=== PATIENT | female | born 1995 | race African-American/Black ===

== ENCOUNTER 2021-05-26 15:16 | Emergency (ER) | payer OTHER, SELFPAY ==
[2021-05-26 15:25] VITALS: BP 126/82; PULSE 95; RESP 16; TEMP 36.4; O2SAT 100
--- NOTE | 2021-05-26 15:44 | ED.URI ---
HPI - URI/Sore Throat General Chief Complaint: Upper Respiratory Infection Stated Complaint: fever/jean/sore throat Time Seen by Provider: 05/26/21 16:00 Source: patient and RN notes reviewed Mode of arrival: ambulatory Limitations: no limitations History of Present Illness HPI Narrative: 26-year-old female presents with concern for fever, headache, sore throat since yesterday. She denies nasal congestion, rhinorrhea, cough, shortness of breath, body aches, chills, sweats. Denies nausea, vomiting, abdominal pain. Reports diarrhea. Reports she has been taking Tylenol and ibuprofen. Denies other intervention. Reports she has not been vaccinated for Covid. Reports both of her children have recently had sore throats. MD elicited complaint: sore throat Related Data Home Medications Medication Instructions Recorded Confirmed Adderall XR 20 mg BYMOUTH DAILY 05/26/21 05/26/21 Allergies Allergy/AdvReac Type Severity Reaction Status Date / Time amoxicillin Allergy Other Verified 05/26/21 15:35 Review of Systems Review of Systems: CONSTITUTIONAL: Denies malaise, chills, sweats. Reports fever. EYES: Denies visual changes, redness, or discharge. ENT: Denies rhinorrhea, congestion, sinus pain, otalgia. Reports sore throat. CARDIOVASCULAR: Denies chest pain, palpitations, or edema. RESPIRATORY: Denies cough or dyspnea. GASTROINTESTINAL: Denies abdominal pain, nausea, vomiting, bloody, or mucous stools. Diarrhea GENITOURINARY: Denies dysuria or hematuria. SKIN: Denies rash or itching. MUSCULOSKELETAL: Denies back pain, joint pain, or myalgia. NEUROLOGIC: Denies numbness, weakness. Reports headache. PSYCHIATRIC: Denies anxiety or depression. All systems reviewed & are unremarkable except as noted in HPI and below PMFSH Family History Family History (Updated 09/17/18 @ 16:18 by DOCTOR UNKNOWN) Mother Hypertension Social History Social History Smoking status: Never smoker Alcohol intake: never Comments At time of signature, agree with nursing past medical, surgical, social and family history. There is no relevant family history pertinent to the presenting complaint Exam Narrative: GENERAL: Well-appearing, well-nourished, and in no acute distress. HEAD: Normocephalic EYES: PERRLA, conjunctivae clear ENT: Nares clear. Mucous membranes moist. TM pearly carter with sharp light reflex bilaterally; no tragal tenderness. Oropharynx not erythematous without lesions. Tonsils not enlarged and without exudate, no drooling, no hoarseness, no trismus, uvula midline. NECK: Supple. No lymphadenopathy CHEST: Clear to auscultation, breath sounds equal. No wheezing, rhonchi, rales, or stridor. No respiratory distress, speaks in full sentences. HEART: Regular rate and rhythm. No murmur heard. SKIN: Warm, dry, no rash. NEURO: Alert and oriented x3. PSYCH: Normal mood and affect Course Course Emergency Course: Patient is aware of diagnosis, understands and agrees to treatment plan. Anticipatory guidance given. Patient agrees to follow-up as directed and is aware of reasons to seek care at the emergency department. Portions of this record may have been created with voice recognition software Vital Signs Vital signs: Vital Signs Temperature 97.5 F L 05/26/21 15:25 Pulse Rate 95 05/26/21 15:25 Respiratory Rate 16 05/26/21 15:25 Blood Pressure 126/82 05/26/21 15:25 Pulse Oximetry 100 05/26/21 15:25 Temperature 97.5 F L 05/26/21 15:25 Pulse Rate 95 05/26/21 15:25 Respiratory Rate 16 05/26/21 15:25 Blood Pressure 126/82 05/26/21 15:25 Pulse Oximetry 100 05/26/21 15:25 Reviewed. MDM - URI/Sore Throat MDM Narrative Medical decision making narrative: Differential diagnosis considered: [place] virus, strep pharyngitis, allergic rhinitis, upper respiratory tract infection, sinusitis, rhinosinusitis, nasopharyngitis. viral pharyngitis, otitis media, otitis externa, pneumonia, bronchitis, viral cough
[2021-05-27 17:06] LABS: SARS-CoV-2 RNA PCR Negative
== END 2021-05-26 16:18 | disposition home or self-care (01) ==
PROVIDERS: Emergency Provider Nurse Practitioner; PCP Family Medicine
DX: J02.9 Acute pharyngitis, unspecified (principal); Z20.822 Contact with and (suspected) exposure to COVID-19
CPT/HCPCS: 87081; 87880; 99213; C9803; G0463; U0003; U0005

== ENCOUNTER 2021-06-28 10:29 | Emergency (ER) | payer OTHER, SELFPAY ==
--- NOTE | ~2021-06-28 | US_ITS ---
EXAMINATION: US pelvic complete w TV EXAM DATE: 06/28/2021 11:50 INDICATION: Bleeding and pain. TECHNIQUE: Pelvic transabdominal and transvaginal sonogram was performed. There are multiple graysca le and Doppler images available for interpretation. Comparison is made to prior examination from 2018. FINDINGS: Uterus measures 8.1 x 3.4 x 4.4 cm, and is morphologically normal. Endometrial stripe lisa sures 9 mm, within normal limits. There is no free pelvic fluid. Right adnexa: The ovary measures 2.2 x 1.8 x 1.8 cm and is morphologically normal. Ovarian vascular f low confirmed. Left adnexa: The ovary measures 3.3 x 2.2 x 2.1 cm and is morphologically normal. Ovarian vascular fl ow confirmed. IMPRESSION: Unremarkable pelvic ultrasound exam. Reviewed, dictated and finalized at location B.
[2021-06-28 10:40] VITALS: BP 146/89; PULSE 89; RESP 16; TEMP 36.6; O2SAT 100
[2021-06-28 11:32] LABS: Alanine Aminotransferase 17 U/L (4-35); Albumin Level 4.2 g/dL (3.5-5.1); Alkaline Phosphatase 85 U/L (38-126); Anion Gap 9 mmol/L (8-16); Aspartate Amino Transferase 22 U/L (14-36); Basophils Percent Auto 0.1 % (0.2-1.2); Bilirubin,Total 0.4 mg/dL (0.2-1.3); Blood Urea Nitrogen 11 mg/dL (7-17); Calcium 9.1 mg/dL (8.4-10.2); Carbon Dioxide 26 mmol/L (22-30); Chloride 104 mmol/L (98-107); Eosinophils Absolute Auto 0.1 K/mm3 (0-0.3); Eosinophils Percent Auto 1.2 % (0-4.4); Estimated CRCL calculation 158 ml/min; Estimated Glomerular Filt Rate > 60; Glucose 92 mg/dL (65-110); Hematocrit 35.1 % (37.0-47.0); Hemoglobin 11.2 g/dL (12.0-15.0); Immature Granulocyte Absolute 0.02 K/mm3 (0.00-0.031); Immature Granulocyte Percent A 0.3 % (0-0.5); Lymphocytes Absolute Auto 2.24 K/mm3 (0.9-3.2); Lymphocytes Percent Auto 32.3 % (18.3-44.2); Mean Corpuscular HGB Conc 31.9 g/dl (32-36); Mean Corpuscular Hemoglobin 27.6 pg (26-34); Mean Corpuscular Volume 86.5 fl (80-100); Monocytes Absolute Auto 0.3 K/mm3 (0.1-0.6); Monocytes Percent Auto 4.3 % (2.6-8.5); Neutrophils Absolute Auto 4.3 K/mm3 (1.3-6.7); Neutrophils Percent Auto 61.8 % (45.5-73.1); Platelet Count Result 341 k/mm3 (150-375); Red Blood Count 4.06 M/mm3 (4.2-5.4); Sodium 139 mmol/L (137-145); White Blood Count 6.9 K/mm3 (4.5-10.0)
[2021-06-28 11:36] LABS: Add Urine Microscopic? YES; Appearance Urine Turbid (Clear); Bilirubin Urine Negative (Negative); Blood Urine 3+ (Negative); Color Urine Red (Yellow); Glucose Urine UA 1+ mg/dL (Negative); Ketones Urine Negative (Negative); Leukocyte Esterase Ur Trace LEU/UL (Negative); Nitrate Urine Negative (Negative); Protein Urine 3+ mg/dL (Negative); RBC Urine >75 /hpf (0-2); Specific Grav Ur 1.026 (1.001-1.035); Urobilinogen Urine Negative mg/dL (<2.0)
[2021-06-28 11:42] LABS: INR 0.9; Prothrombin Time 12.1 Seconds (11.1-14.7)
[2021-06-28 11:43] LABS: Partial Thromboplastin Time 26.8 SECONDS (22.3-36.8)
[2021-06-28 11:50] VITALS: BP 133/66; PULSE 80
[2021-06-28 11:53] VITALS: BP 141/69
[2021-06-28 11:54] VITALS: BP 133/83; PULSE 94
[2021-06-28 13:11] VITALS: BP 113/77; PULSE 80; RESP 14; O2SAT 99
[2021-06-28 14:34] VITALS: BP 112/87; PULSE 80; RESP 14; TEMP 36.9; O2SAT 100
--- NOTE | 2021-06-28 17:01 | ED.GENADULT ---
HPI - General Adult General Chief complaint: Vaginal Bleeding Stated complaint: vag bleeding Time Seen by Provider: 06/28/21 10:49 Source: patient Mode of arrival: ambulatory Limitations: no limitations History of Present Illness HPI narrative: Patient presents with chief complaint of intermittent vaginal bleeding that has been intermittent since taking her Nexplanon out in December. Patient states that she used the NuvaRing for 1 month but then discontinued using it. Patient reports that her [employer]INE[employer] Dr. Ramirez prescribed progesterone but she never took it. She reports the past few weeks she has had bleeding and fatigue. Reports it has been heavier the past few days and she has noticed clots when getting up. She reports that she has not felt like being very active since having all of the bleeding. She reports she called her ob office last week and they ordered blood work but she did not go and have it performed. She reports she presented to the ER today after calling her ob for the labwork and us. Related Data Home Medications Medication Instructions Recorded Confirmed Adderall XR 20 mg BYMOUTH DAILY 05/26/21 05/26/21 Allergies Allergy/AdvReac Type Severity Reaction Status Date / Time amoxicillin Allergy Other Verified 05/26/21 15:35 Review of Systems Review of Systems: CONSTITUTIONAL: Denies fever, chills, or sweats. EYES: Denies visual changes, redness, or discharge. ENT: Denies rhinorrhea, congestion, sore throat, or otalgia. CARDIOVASCULAR: Denies chest pain, palpitations, or edema. RESPIRATORY: Denies cough or dyspnea. GASTROINTESTINAL: Denies abdominal pain, nausea, vomiting, or diarrhea. GENITOURINARY: Reports vaginal bleeding denies dysuria or hematuria. SKIN: Denies rash or itching. MUSCULOSKELETAL: Denies back pain, joint pain, or myalgia. NEUROLOGIC: Denies headache, numbness, dizziness, or weakness. PSYCHIATRIC: Denies anxiety or depression. [facility] Family History Family History (Updated 09/17/18 @ 16:18 by DOCTOR UNKNOWN) Mother Hypertension Social History Social History Smoking status: Never smoker Alcohol intake: never Exam Narrative: GENERAL: Well-appearing, well-nourished, and in no acute distress. HEAD: Normocephalic, atraumatic. EYES: PERRLA and EOMI. CHEST: Clear to auscultation. No respiratory distress. No wheezes rales or rhonchi HEART: Regular rate and rhythm. No murmur heard. Normal peripheral pulses. ABDOMEN: Soft, mild tenderness over right ovary area, nondistended, normal active bowel sounds. PELVIC: Cervix appears normal. Moderate blood flow, no clots or profuse bleeding.No discharge noted. EXTREMITIES: Normal range of motion. No edema. SKIN: Warm, dry, no rash. NEURO: No focal deficits. Alert and oriented x3. PSYCH: Normal mood and affect. Course Vital Signs Vital signs: Vital Signs Temperature 98 F 06/28/21 10:40 Pulse Rate 89 06/28/21 10:40 Respiratory Rate 16 06/28/21 10:40 Blood Pressure 146/89 H 06/28/21 10:40 Pulse Oximetry 100 06/28/21 10:40 Temperature 98.4 F 06/28/21 14:34 Pulse Rate 80 06/28/21 14:34 Respiratory Rate 14 06/28/21 14:34 Blood Pressure 112/87 06/28/21 14:34 Pulse Oximetry 100 06/28/21 14:34 Medical Decision Making [facility] Narrative Medical decision making narrative: Consult Dr. Stanton [employer] patient the patient's complaints, presentation, lab work, ultrasound report who recommends to put the patient on Provera 20 mg daily for 1 week then 10 mg daily until she can be seen in the office. She asked that the patient be dispensed 40 pills. Patient has been given return ER instructions. Patient denies any other needs or concerns at this time and is ready for discharge. Vital Signs Vital Signs: Vital Signs Temperature 98 F 06/28/21 10:40 Pulse Rate 89 06/28/21 10:40 Respiratory Rate 16 06/28/21 10:40 Blood Pressure 146/89 H 06/28/21 10:40 Pulse Oximetry 100 06/28/21 10:40 Temperature 98.4 F
== END 2021-06-28 14:35 | disposition home or self-care (01) ==
PROVIDERS: Physician Assistant; Emergency Provider Emergency Medicine; PCP Family Medicine
DX: N93.8 Other specified abnormal uterine and vaginal bleeding (principal)
CPT/HCPCS: 36415; 76830; 76856; 80053; 81001; 81025; 85025; 85610; 85730; 99284

== ENCOUNTER 2021-08-05 15:07 | Outpatient (CLI) | payer OTHER, SELFPAY ==
[2021-08-05 16:06] LABS: Basophils Percent Auto 0.3 % (0.2-1.2); Eosinophils Absolute Auto 0.1 K/mm3 (0-0.3); Eosinophils Percent Auto 0.9 % (0-4.4); Hematocrit 33.5 % (37.0-47.0); Hemoglobin 10.7 g/dL (12.0-15.0); Immature Granulocyte Absolute 0.01 K/mm3 (0.00-0.031); Immature Granulocyte Percent A 0.1 % (0-0.5); Lymphocytes Absolute Auto 2.44 K/mm3 (0.9-3.2); Lymphocytes Percent Auto 31.6 % (18.3-44.2); Mean Corpuscular HGB Conc 31.9 g/dl (32-36); Mean Corpuscular Hemoglobin 26.9 pg (26-34); Mean Corpuscular Volume 84.2 fl (80-100); Mean Platelet Volume 11.1 fl (7.4-10.4); Monocytes Absolute Auto 0.4 K/mm3 (0.1-0.6); Monocytes Percent Auto 4.7 % (2.6-8.5); Neutrophils Absolute Auto 4.8 K/mm3 (1.3-6.7); Neutrophils Percent Auto 62.4 % (45.5-73.1); Platelet Count Result 421 k/mm3 (150-375); Red Blood Count 3.98 M/mm3 (4.2-5.4); Red Cell Distribution Width 14.9 % (11.5-14.5); White Blood Count 7.7 K/mm3 (4.5-10.0)
[2021-08-05 17:08] LABS: Iron 41 ug/dL (37-170)
[2021-08-05 17:17] LABS: Vitamin D 25 Hydroxy 37.9 ng/mL
[2021-08-05 17:18] LABS: Percent Iron Saturation 10 % (20-50)
[2021-08-05 17:22] LABS: Folic Acid 12.9 ng/mL (2.76->20)
[2021-08-05 17:44] LABS: Ferritin 7.78 ng/mL (6.24-137)
[2021-08-08 07:29] LABS: FSH 1.4 mIU/mL (***); LH 0.4 mIU/mL (***); Prolactin 7.3 ng/mL (***)
[2021-08-09 14:22] LABS: Testosterone Free 0.5 pg/mL (0.1-6.4); Testosterone Total 7 ng/dL (2-45)
[2021-08-10 14:16] LABS: DHEA-Sulfate 56 mcg/dL (18-391)
[2021-08-10 21:46] LABS: Estradiol, Ultrasensitive 9 pg/mL
== END 2021-08-05 15:08 | disposition home or self-care (01) ==
LOC: ANHLAB 15:09
PROVIDERS: PCP Family Medicine; Visit Provider Obstetrics & Gynecology
DX: N92.6 Irregular menstruation, unspecified (principal)
CPT/HCPCS: 36415; 82306; 82607; 82627; 82670; 82728; 82746; 83001; 83002; 83498; 83540; 83550; 84146; 84402; 84403; 85025

== ENCOUNTER 2021-10-09 18:18 | Emergency (ER) | payer OTHER, SELFPAY ==
[2021-10-09 18:26] VITALS: BP 151/85; PULSE 98; RESP 16; TEMP 37.4; O2SAT 100
--- NOTE | 2021-10-09 18:27 | ED.URI ---
HPI - URI/Sore Throat General Chief Complaint: Upper Respiratory Infection Stated Complaint: Congestion,Sore Throat Time Seen by Provider: 10/09/21 18:27 Source: patient, RN notes reviewed and old records reviewed Mode of arrival: ambulatory Limitations: no limitations History of Present Illness HPI Narrative: 26-year-old female presents to the [facility] with complaints of a sore throat and nasal congestion since yesterday. Has taken Tylenol but no other decongestant or medication. Denies Covid or flu vaccine. Denies chest pain or abdominal pain. Denies fevers. No nausea vomiting or diarrhea. States her ears feel full. MD elicited complaint: sore throat and nasal congestion Related Data Home Medications Medication Instructions Recorded Confirmed Adderall XR 20 mg BYMOUTH DAILY 05/26/21 08/03/21 cholecalciferol (vitamin D3) 10 10 mcg PO DAILY 08/03/21 08/03/21 mcg (400 unit) capsule Allergies Allergy/AdvReac Type Severity Reaction Status Date / Time amoxicillin Allergy Other Verified 10/09/21 18:22 Review of Systems Review of Systems: All systems reviewed & are unremarkable except as noted in HPI and below Constitutional: Constitutional: Reports no additional constitutional complaints, Denies chills, Denies fever(s) and Denies headache(s) Eyes: Eyes: Reports no additional eye complaints ENT: Reports as per HPI, Denies vertigo, Denies dizziness, Denies headache(s), Reports nasal congestion and Reports sore throat Cardiovascular: Cardiovascular: Reports no additional cardiovascular complaints, Denies chest pain, Denies syncope, Denies rapid heart rate and Denies dyspnea Respiratory: Respiratory: Reports no additional respiratory complaints, Denies cough, Denies dyspnea and Denies wheezing Gastrointestinal: Gastrointestinal: Reports no additional gastrointestinal complaints, Denies abdominal pain, Denies diarrhea, Denies nausea and Denies vomiting Musculoskeletal: Musculoskeletal: Reports no additional musculoskeletal complaints and Denies numbness Integumentary/Breasts: Skin/Breast: Reports system reviewed and no additional complaints, except as docu Neurologic: Reports system reviewed and no additional complaints, except as documented, Denies vertigo, Denies dizziness, Denies syncope, Denies headache(s), Denies focal weakness and Denies numbness Psychiatric: Psychiatric: Reports no additional psychiatric complaints Allergic/Immunologic: Allergic/Immunologic: Reports no additional allergic/immunologic complaints and Denies wheezing PMFSH Surgical History Surgical History Hx of cholecystectomy Hx of colonoscopy Hx of tonsillectomy Family History Family History Mother Hypertension Father Hypertension Grandparent Hypertension Social History Social History Smoking status: Never smoker Second hand tobacco smoke exposure: No Alcohol intake: never Substance use: never Gender identity (if verbalized by the patient): Female Agree to blood products: Yes Comments At the time of my signature, I reviewed and agree with the nursing past medical, surgical, social, and family history. There is no relevant family history pertinent to the patient complaint. Exam Const: General: cooperative, healthy appearing, no acute distress, well developed and alert Nutritional Appearance: well nourished and obese morbidly obese Orientation/consciousness: patient oriented x3 Limitations: no limitations HENMT: Head: normal to inspection Ears: external ears normal, EAC's normal and TM abnormal with fluid behind the TM on the left; not erythematous and with no loss of landmarks General nose exam: Normal nares present and Normal nasal mucous membranes and turbinates present Face and sinus: normal facial exam Mouth: Yes lip normal and Yes moist mucous membranes Throat:
== END 2021-10-09 18:40 | disposition home or self-care (01) ==
PROVIDERS: Emergency Provider Nurse Practitioner; PCP Family Medicine
DX: J01.40 Acute pansinusitis, unspecified (principal)
CPT/HCPCS: 99213; G0463

== ENCOUNTER 2022-02-24 15:02 | Outpatient (CLI) | payer OTHER, SELFPAY ==
--- NOTE | ~2022-02-24 | US_ITS ---
CORRECTED REPORT Procedure description added. 04/28/2022 sef EXAMINATION: US OB <= 14 wk fetus add gest; US OB <= 14 weeks fetus DATE: 02/24/2022 15:45 INDICATION: First trimester dating TECHNIQUE: Real-time pelvic transabdominal and transvaginal ultrasound was performed. COMPARISON: None. FINDINGS: There are two intrauterine gestational sacs by a thick membrane. Baby A: A yolk sac is identified. heart motion is identified measuring 162 beats per minute (bpm) by M-mode Doppler. The crown rump length measures 2.8 cm , which correlates with an estimated gestational age of 9 weeks and 5 day(s) (+/-) 6 day(s). Baby B: A yolk sac is identified. heart motion is identified measuring 152 beats per minute (bpm) by M-mode Doppler. The crown rump length measures 2.7 cm , which correlates with an estimated gestational age of 9 weeks and 3 day(s) (+/-) 6 day(s). The ovaries are not visualized however no adnexal abnormality is seen. There is no free fluid in the pelvis. IMPRESSION: 1. Dichorionic, diamniotic twin with an estimated gestational age of 9 weeks and 5 day(s) (+/-) 6 day(s) and an estimated delivery date of 09/24/2022 for baby A and an estimated gestational age of 9 weeks and 3 day(s) (+/-) 6 day(s) and an estimated delivery date of 09/26/2022 for baby A. Reviewed, dictated and finalized at location F. MTDD IMPRESSION: 1. Dichorionic, diamniotic twin with an estimated gestational age of 9 weeks and 5 day(s) (+/-) 6 day(s) and an estimated delivery date of 09/24/2022 for baby A and an estimated gestational age of 9 weeks and 3 day(s) (+/-) 6 da y(s) and an estimated delivery date of 09/26/2022 for baby A.
== END 2022-02-24 15:03 | disposition home or self-care (01) ==
PROVIDERS: PCP Family Medicine; Visit Provider Obstetrics & Gynecology
DX: Z34.91 Encounter for supervision of normal pregnancy, unspecified, first trimester (principal); Z3A.09 9 weeks gestation of pregnancy
CPT/HCPCS: 76801; 76802

== ENCOUNTER 2022-04-13 09:43 | Outpatient (CLI) | payer OTHER, SELFPAY ==
[2022-04-13 11:25] LABS: Basophils Percent Auto 0.2 % (0.2-1.2); Eosinophils Absolute Auto 0.1 K/mm3 (0-0.3); Eosinophils Percent Auto 0.9 % (0-4.4); Hematocrit 33.9 % (37.0-47.0); Hemoglobin 10.3 g/dL (12.0-15.0); Immature Granulocyte Absolute 0.02 K/mm3 (0.00-0.031); Immature Granulocyte Percent A 0.3 % (0-0.5); Lymphocytes Absolute Auto 2.08 K/mm3 (0.9-3.2); Lymphocytes Percent Auto 31.3 % (18.3-44.2); Mean Corpuscular HGB Conc 30.4 g/dl (32-36); Mean Corpuscular Hemoglobin 26.8 pg (26-34); Mean Corpuscular Volume 88.3 fl (80-100); Mean Platelet Volume 11.1 fl (7.4-10.4); Monocytes Absolute Auto 0.3 K/mm3 (0.1-0.6); Monocytes Percent Auto 4.7 % (2.6-8.5); Neutrophils Absolute Auto 4.2 K/mm3 (1.3-6.7); Neutrophils Percent Auto 62.6 % (45.5-73.1); Platelet Count Result 284 k/mm3 (150-375); Red Blood Count 3.84 M/mm3 (4.2-5.4); Red Cell Distribution Width 15.4 % (11.5-14.5); White Blood Count 6.6 K/mm3 (4.5-10.0)
[2022-04-13 11:40] LABS: Glucose 1 Hour PP 50gm Dose 189 mg/dL
[2022-04-13 12:30] LABS: HIV 1/2 Ab P24 Ag Result Negative (Negative)
[2022-04-13 17:41] LABS: Hepatitis B Surface Antigen Negative (Negative); Rubella IgG Antibody 7.2 IU/ML
[2022-04-14 05:59] LABS: Rapid Plasma Reagin Non-Reactive (NonReactive)
[2022-04-15 16:00] LABS: CMV IgG Antibody <0.60 U/mL (<0.60)
[2022-04-18 14:10] LABS: Hematocrit 33.8 % (35.0-45.0); Hemoglobin 10.4 g/dL (11.7-15.5); MCH 26.7 pg (27.0-33.0); MCV 86.9 fL (80.0-100.0); RDW 14.3 % (11.0-15.0); Red Blood Cell Count 3.89 Mill/uL (3.80-5.10)
== END 2022-04-13 09:44 | disposition home or self-care (01) ==
LOC: ANHLAB 09:45
PROVIDERS: PCP Family Medicine; Visit Provider Obstetrics & Gynecology
DX: N91.2 Amenorrhea, unspecified (principal)
CPT/HCPCS: 36415; 82947; 83021; 84702; 85025; 86592; 86644; 86703; 86747; 86762; 86787; 86900; 86901; 87086; 87088; 87340; G0432

== ENCOUNTER 2022-06-24 12:33 | Observation (INO) | payer OTHER, SELFPAY ==
[2022-06-24] VITALS (103 sets, daily range): BP systolic 103–176; BP diastolic 73–106; PULSE 64–100; O2SAT 87–100; BMI 54.4
--- NOTE | 2022-06-24 13:21 | OBADM ---
This patient, Sea Matta, admitted to the OB room OB Post 112 for observation. Patient/family oriented to hospital policies and general routines including ID bracelet, bed and alarms, visiting hours, pain management, procedures, bathroom and other care routines, personal items, smoking policy, room service/diet, and visiting hours. Patient/Family are encouraged to report perceived risks to care and to ask questions if they do not understand what they are told or what they should do.
--- NOTE | 2022-06-24 14:34 | PC.NURSE ---
Spoke to Dr. Nick regarding patient status and tracing. Ordered to run fluids and send labs for possible pre-e.
[2022-06-24] MEDS: LACTATED RINGERS 1,000 ML 999 ML IV CONT (15:07)
[2022-06-24 15:12] LABS: Basophils Percent Auto 0.2 % (0.2-1.2); Eosinophils Percent Auto 0.7 % (0-4.4); Hematocrit 31.9 % (37.0-47.0); Hemoglobin 9.9 g/dL (12.0-15.0); Immature Granulocyte Absolute 0.03 K/mm3 (0.00-0.031); Immature Granulocyte Percent A 0.5 % (0-0.5); Lymphocytes Absolute Auto 1.43 K/mm3 (0.9-3.2); Lymphocytes Percent Auto 26.2 % (18.3-44.2); Mean Corpuscular Hemoglobin 27.1 pg (26-34); Mean Corpuscular Volume 87.4 fl (80-100); Mean Platelet Volume 12.3 fl (7.4-10.4); Monocytes Absolute Auto 0.6 K/mm3 (0.1-0.6); Monocytes Percent Auto 10.1 % (2.6-8.5); Neutrophils Absolute Auto 3.4 K/mm3 (1.3-6.7); Neutrophils Percent Auto 62.3 % (45.5-73.1); Platelet Count Result 233 k/mm3 (150-375); Red Blood Count 3.65 M/mm3 (4.2-5.4); Red Cell Distribution Width 15.6 % (11.5-14.5); White Blood Count 5.5 K/mm3 (4.5-10.0)
[2022-06-24] MEDS: ONDANSETRON INJ 4 MG/2 ML VIAL IV PUSH (15:22)
[2022-06-24 16:32] LABS: Alanine Aminotransferase 13 U/L (6-35); Albumin Level 3.1 g/dL (3.5-5.1); Alkaline Phosphatase 132 U/L (38-126); Anion Gap 11 mmol/L (8-16); Aspartate Amino Transferase 17 U/L (14-36); Bilirubin,Total 0.5 mg/dL (0.2-1.3); Blood Urea Nitrogen 12 mg/dL (7-17); Calcium 8.5 mg/dL (8.4-10.2); Carbon Dioxide 21 mmol/L (22-30); Chloride 107 mmol/L (98-107); Estimated CRCL calculation 138 ml/min; Estimated Glomerular Filt Rate > 60; Glucose 72 mg/dL (65-110); Potassium 3.9 mmol/L (3.4-5.0); Sodium 139 mmol/L (137-145); Uric Acid 8.3 mg/dL (2.5-7.5)
[2022-06-24] MEDS: LABETALOL HCL 100 MG TABLET 200 MG PO (16:48)
[2022-06-24 17:36] LABS: Total Protein Urine Random > 600 mg/dL
--- NOTE | 2022-06-24 18:31 | PM.IMHP ---
H&P: HPI History of Present Illness Date/Time: 06/24/22 18:31 Chief Complaint: 27 yo at 26w4d who di/di twin gestation who presents with elevated BP. Pt presented with complaints of nausea, vomiting, diarrhea x 2 days. She also reports increase swelling in the last 24 hrs. She denies any RUIZ, scotoma, RUQ pain. She reports good movement. Pt is complicated by prior delivery of spontaneous twins at 32w, morbid obesity, and glucose intolerance. Review of Systems Review of Systems: All systems reviewed & are unremarkable except as noted in HPI and below [facility] Surgical History Surgical History Hx of cholecystectomy Hx of colonoscopy Hx of tonsillectomy Family History Family History Mother Hypertension Father Hypertension Grandparent Hypertension Social History Social History Smoking status: Never smoker Second hand tobacco smoke exposure: No Alcohol intake: never Substance use: never Gender identity (if verbalized by the patient): Female Agree to blood products: Yes Meds Home Medications and Allergies Home Medications Medication Instructions Recorded Confirmed Type cholecalciferol (vitamin D3) 10 10 mcg PO DAILY 08/03/21 06/24/22 History mcg (400 unit) capsule doxylamine succinate 25 mg tablet 25 mg PO QHS #60 tabs 02/15/22 06/24/22 Rx (Unisom (doxylamine)) ondansetron 4 mg disintegrating 4 mg PO Q6H PRN nausea and 02/15/22 06/24/22 Rx tablet vomiting #30 tabs pyridoxine (vitamin B6) 25 mg 25 mg PO TID #120 tabs 02/15/22 06/24/22 Rx tablet ferrous sulfate 325 mg (65 mg 325 mg PO DAILY #30 tabs 04/13/22 06/24/22 Rx iron) tablet (Feosol) aspirin 81 mg tablet,delayed 81 mg PO DAILY #90 tabs 04/14/22 06/24/22 Rx release (Adult Aspirin Regimen) Allergies Allergy/AdvReac Type Severity Reaction Status Date / Time amoxicillin Allergy Other Verified 05/19/22 09:39 Vital Signs Vital Signs - 24 hr 10/21/22 13:17 06/24/22 13:38 06/24/22 13:46 Pulse Rate 86 71 75 Blood Pressure 157/101 H 157/92 H 149/74 H Pulse Oximetry 06/24/22 14:00 06/24/22 14:10 06/24/22 14:15 Pulse Rate 76 Blood Pressure 157/100 H Pulse Oximetry 99 94 06/24/22 14:16 06/24/22 14:20 06/24/22 14:25 Pulse Rate 74 Blood Pressure 154/89 H Pulse Oximetry 94 97 06/24/22 14:30 06/24/22 14:31 06/24/22 14:35 Pulse Rate 72 Blood Pressure 146/89 H Pulse Oximetry 95 93 06/24/22 14:40 06/24/22 14:45 06/24/22 14:46 Pulse Rate 74 Blood Pressure 171/93 H Pulse Oximetry 94 94 06/24/22 14:50 06/24/22 14:55 06/24/22 14:59 Pulse Rate Blood Pressure Pulse Oximetry 95 94 99 06/24/22 15:04 06/24/22 15:09 06/24/22 15:14 Pulse Rate Blood Pressure Pulse Oximetry 98 98 97 06/24/22 15:15 06/24/22 15:15 06/24/22 15:16 Pulse Rate 71 Blood Pressure 153/100 H Pulse Oximetry 96 96 06/24/22 15:20 06/24/22 15:25 06/24/22 15:30 Pulse Rate 77 Blood Pressure 171/97 H Pulse Oximetry 99 99 98 06/24/22 15:35 06/24/22 15:40 06/24/22 15:45 Pulse Rate Blood Pressure Pulse Oximetry 98 98 100 06/24/22 15:46 06/24/22 15:50 06/24/22 16:31 Pulse Rate 75 75 Blood Pressure 164/94 H 159/89 H Pulse Oximetry 98 06/24/22 16:46 06/24/22 16:50 06/24/22 17:01 Pulse Rate 78 90 98 Blood Pressure 159/95 H 176/106 H 172/96 H Pulse Oximetry 06/24/22 17:03 06/24/22 17:09 06/24/22 17:14 Pulse Rate 89 Blood Pressure 173/94 H Pulse Oximetry 96 87 L 06/24/22 17:15 06/24/22 17:18 06/24/22 17:20 Pulse Rate 82 Blood Pressure 103/73 Pulse Oximetry 91 98 06/24/22 17:22 06/24/22 17:25 06/24/22 17:26 Pulse Rate 77 78 Blood Pressure 130/89 140/81 Pulse Oximetry 100 06/24/22 17:31 06/24/22 17:35 06/24/22 17:36 Pulse
--- NOTE | 2022-06-27 13:57 | P.PNOB_ITS ---
OB - Triage/Final Diagnosis Visit Information Date of evaluation: 06/24/22 Reason for evaluation: other (preeclampsia) Comments/Additional reasons for admission: I have assessed the risk for this patient, Sea Matta, and determined that she would benefit from observation care. Evaluation Laboratory results: Laboratory Tests 06/24/22 06/24/22 06/24/22 15:06 15:06 16:16 WBC 5.5 RBC 3.65 L Hgb 9.9 L Hct 31.9 L MCV 87.4 MCH 27.1 MCHC 31.0 L RDW 15.6 H Plt Count 233 MPV 12.3 H Immature Gran % (Auto) 0.5 Neut % (Auto) 62.3 Lymph % (Auto) 26.2 Whitley % (Auto) 10.1 H Eos % (Auto) 0.7 Baso % (Auto) 0.2 Lymph # (Auto) 1.43 Whitley # (Auto) 0.6 Eos # (Auto) 0.0 Baso # (Auto) 0.0 Abs Immat Gran (auto) 0.03 Absolute Neuts (auto) 3.4 Absolute Nucleated RBC 0.0 Nucleated RBC % 0.0 Sodium 139 Potassium 3.9 Chloride 107 Carbon Dioxide 21 L Anion Gap 11 BUN 12 Creatinine 0.70 Estim Creat Clear Calc 138 Estimated GFR > 60 Glucose 72 Uric Acid 8.3 H Calcium 8.5 Total Bilirubin 0.5 AST 17 ALT 13 Alkaline Phosphatase 132 H Total Protein 6.0 L Albumin 3.1 L U Random Total Protein > 600 Urine Creatinine 500.0 Protein/Creat Ratio 2 > 1.20 H
== END 2022-06-24 20:39 | disposition short-term general hospital (02) ==
LOC: ANHOBPP 06-27 13:38
PROVIDERS: Admitting Provider Student in an Organized Health Care Education/Training Program; PCP Family Medicine; Visit Provider Student in an Organized Health Care Education/Training Program
DX: O30.042 Twin pregnancy, dichorionic/diamniotic, second trimester (principal); O09.92 Supervision of high risk pregnancy, unspecified, second trimester; O99.212 Obesity complicating pregnancy, second trimester; E66.01 Morbid (severe) obesity due to excess calories; O14.92 Unspecified pre-eclampsia, second trimester; O24.419 Gestational diabetes mellitus in pregnancy, unspecified control; O60.02 Preterm labor without delivery, second trimester; Z3A.26 26 weeks gestation of pregnancy; Z87.51 Personal history of pre-term labor
CPT/HCPCS: 36415; 80053; 82570; 84156; 84550; 85025; 96374; A9270; G0378; G0379; J2405; J7120

== ENCOUNTER 2023-06-12 19:32 | Emergency (ER) | payer OTHER, SELFPAY ==
--- NOTE | ~2023-06-12 | CT_ITS ---
EXAMINATION: CT cervical spine wo con DATE: 06/12/2023 22:31 INDICATION: pain TECHNIQUE: Computed tomography (CT) of the cervical spine was performed without intravenous contrast. Automated exposure control and iterative reconstruction technique were employed. The dose-length pro duct was 632.66 mGy-cm. COMPARISON: None. FINDINGS: Vertebral Body Alignment: Intact. Craniocervical and atlantoaxial alignment: No significant degenerative change. Alignment intact. Osseous structures/fracture: No evidence of a lytic or blastic process in the visualized spine. No e vidence of acute fracture. Cervical soft tissues: The paraspinal soft tissues planes are maintained. Degenerative changes: No significant degenerative changes. IMPRESSION: No acute fracture or traumatic malalignment in the cervical spine. Reviewed, dictated and finalized at location K.
[2023-06-12 19:50] VITALS: BP 148/90; PULSE 100; RESP 20; TEMP 36.8; O2SAT 100
[2023-06-12 21:33] VITALS: BP 144/89; PULSE 78; RESP 18; O2SAT 100
--- NOTE | 2023-06-12 22:17 | ED.HA ---
HPI - Headache General Chief Complaint: Headache Stated Complaint: headache, neck pain Time Seen by Provider: 06/12/23 21:40 History of Present Illness HPI Narrative: Patient presents to the emergency department with left neck pain and headache. Pain started a couple weeks ago. Worse with movement of her head to the left. When she moves her head pain radiates up into the top of her head. No vision changes but pain worse when she looks down. Related Data Home Medications Medication Instructions Recorded Confirmed cholecalciferol (vitamin D3) 10 10 mcg PO DAILY 08/03/21 06/24/22 mcg (400 unit) capsule lisdexamfetamine 40 mg capsule 40 mg PO 04/07/23 (Vyvanse) Allergies Allergy/AdvReac Type Severity Reaction Status Date / Time amoxicillin Allergy Other Verified 06/12/23 21:37 Review of Systems Review of Systems: Review of systems negative except for what is documented in the [facility] Surgical History Surgical History Hx of cholecystectomy Hx of colonoscopy Hx of tonsillectomy Family History Family History Mother Hypertension Father Hypertension Grandparent Hypertension Social History Social History Smoking status: Never smoker Second hand tobacco smoke exposure: No Alcohol intake: never Substance use: never Lack of Transportation: No Lack of Food: Never True Current Housing: I Have Housing Concerned About Future Housing: Decline to Answer Difficulty Paying Gas/Electric Bills: YES Difficulty Paying for Meds: No Currently Unemployed: No Education: Bachelor's Degree Difficulty w/ Childcare or Family Care: No Living arrangements: with family Gender identity (if verbalized by the patient): Female Agree to blood products: Yes Exam Narrative: GENERAL: Well-appearing, well-nourished, and in no acute distress. HEAD: Normocephalic, atraumatic. EYES: PERRLA and EOMI. ENT: Nares clear, no rhinorrhea or epistaxis. Mucous membranes moist. NECK: Supple. Neck muscle spasm CHEST: Clear to auscultation. No respiratory distress. HEART: Regular rate and rhythm. ABDOMEN: Soft, nontender, nondistended. EXTREMITIES: Normal range of motion. No edema. SKIN: Warm, dry, no rash. NEURO: No focal deficits. Alert and oriented x3. PSYCH: Normal mood and affect. Course Course Emergency Course: Exam and history consistent with torticollis. Medications ordered Vital Signs Vital signs: Vital Signs Temperature 36.8 C 06/12/23 19:50 Pulse Rate 100 06/12/23 19:50 Respiratory Rate 20 06/12/23 19:50 Blood Pressure 148/90 H 06/12/23 19:50 Pulse Oximetry 100 06/12/23 19:50 Oxygen Delivery Room Air 06/12/23 19:50 Temperature 36.8 C 06/12/23 19:50 Pulse Rate 78 06/12/23 21:33 Respiratory Rate 18 06/12/23 21:33 Blood Pressure 144/89 H 06/12/23 21:33 Pulse Oximetry 100 06/12/23 21:33 Oxygen Delivery Room Air 06/12/23 19:50 MDM - Headache MDM Narrative Medical decision making narrative: Ct c spine negatie for acute abnormalities. history, exam and results consistent with torticollis. will reassess for pain relief Discharge Plan Discharge Clinical Impression: Acute torticollis Migraine Qualifiers: Migraine type: unspecified Status migrainosus presence: without status migrainosus Intractability: not intractable Qualified Code(s): G43.909 - Migraine, unspecified, not intractable, without status migrainosus Patient Disposition: Home, Self-Care Condition: Stable Instructions: Antibiotic Form, Acute Neck Pain (ED) Additional Instructions: ibuprofen 600mg every 6-8hours for pain Tylenol 500mg every 4 hours for pain Lidocaine patch Icyhot or biofreeze Alternate heat and ice Valium as needed for breakthrough pain - do not drive or work after taking P
[2023-06-12] MEDS: LIDOCAINE 5% PATCH 1 PATCH TRANSDERM (23:24)
[2023-06-12] MEDS: diazePAM (*CRX) 5 MG TABLET PO (23:25)
[2023-06-12] MEDS: KETOROLAC 30 MG/ML VIAL (*BKC) IV PUSH (23:25)
[2023-06-13 00:28] VITALS: BP 138/91; PULSE 83; RESP 18; O2SAT 100
== END 2023-06-13 00:30 | disposition home or self-care (01) ==
PROVIDERS: Emergency Provider Emergency Medicine; PCP Family Medicine
DX: M43.6 Torticollis (principal); G43.909 Migraine, unspecified, not intractable, without status migrainosus
CPT/HCPCS: 72125; 96374; 99284; A9270; J1885

== ENCOUNTER 2023-08-06 14:26 | Emergency (ER) | payer OTHER, SELFPAY ==
[2023-08-06 14:36] VITALS: BP 129/84; PULSE 76; RESP 16; TEMP 36.7; O2SAT 98
--- NOTE | 2023-08-06 16:50 | ED.URI ---
HPI - URI/Sore Throat General Chief Complaint: Upper Respiratory Infection Stated Complaint: cough,both eyes red/discharge Time Seen by Provider: 08/06/23 16:51 Source: patient Mode of arrival: ambulatory Limitations: no limitations History of Present Illness HPI Narrative: 28-year-old female presents with complaint of sticking drainage, itching to bilateral eyes for 2 weeks. has tried an yqwk-pzx-dnxtbnu eyedrops for irritation without relief of symptoms. Reports dry cough, congestion, sneezing for the past 4 days. Afebrile. No chest pain or shortness of breath. Has not taking any fjyr-jih-pvgecak medications to treat her symptoms. All systems reviewed and negative except as noted above. Related Data Home Medications Medication Instructions Recorded Confirmed cholecalciferol (vitamin D3) 10 10 mcg PO DAILY 08/03/21 08/06/23 mcg (400 unit) capsule Allergies Allergy/AdvReac Type Severity Reaction Status Date / Time amoxicillin Allergy Other Verified 08/06/23 16:40 Review of Systems Review of Systems: CONSTITUTIONAL: Denies fever, chills, or sweats. EYES: Denies visual changes, redness. Reports discharge, itching bilaterally. ENT: Reports rhinorrhea, congestion. Denies sore throat, or otalgia. CARDIOVASCULAR: Denies chest pain, palpitations, or edema. RESPIRATORY: reports cough. Denies dyspnea. GASTROINTESTINAL: Denies abdominal pain, nausea, vomiting, or diarrhea. GENITOURINARY: Denies dysuria or hematuria. SKIN: Denies rash or itching. MUSCULOSKELETAL: Denies back pain, joint pain, or myalgia. NEUROLOGIC: Denies headache, numbness, or weakness. PSYCHIATRIC: Denies anxiety or depression. All other systems reviewed are negative, except as documented in HPI. [facility] Surgical History Surgical History Hx of cholecystectomy Hx of colonoscopy Hx of tonsillectomy Family History Family History Mother Hypertension Father Hypertension Grandparent Hypertension Social History Social History Smoking status: Never smoker Second hand tobacco smoke exposure: No Alcohol intake: never Substance use: never Lack of Transportation: No Lack of Food: Never True Current Housing: I Have Housing Concerned About Future Housing: Decline to Answer Difficulty Paying Gas/Electric Bills: YES Difficulty Paying for Meds: No Currently Unemployed: No Education: Bachelor's Degree Difficulty w/ Childcare or Family Care: No Living arrangements: with family Gender identity (if verbalized by the patient): Female Agree to blood products: Yes Comments At time of signature, agree with nursing past medical, surgical, social and family history. There is no relevant family history pertinent to the presenting complaint. Exam Narrative: GENERAL: This is a well-nourished, well-developed patient, in no apparent distress. HEAD: normocephalic, atraumatic. EYES: PERRL. Sclera clear/white. Conjunctiva pale. No swelling. No drainage at this time. Vision is grossly intact. EARS: External ears normal, auditory canals clear and without drainage, TMs normal without perforation. Hearing grossly intact. NOSE: External nose normal with clear nasal drainage, erythema to both nares without significant swelling. THROAT: Mucous membranes moist, Clear postnasal drainage without erythema swelling or exudates. NECK: Neck supple, non-tender without lymphadenopathy, masses or thyromegaly. CARDIOVASCULAR: Regular rate and rhythm without murmurs, gallops, or rubs. RESPIRATORY: Clear to auscultation. Breath sounds equal bilaterally. No wheezes, rales, or rhonchi. SKIN: warm, Dry, intact with no suspicious lesions or rash, good texture and turgor. NEURO: awake, alert, and oriented to person, place and time. There were no obvious focal neurologic abnormal
== END 2023-08-06 17:05 | disposition home or self-care (01) ==
PROVIDERS: Emergency Provider Nurse Practitioner Family; PCP Family Medicine
DX: J30.9 Allergic rhinitis, unspecified (principal); H10.13 Acute atopic conjunctivitis, bilateral
CPT/HCPCS: 99213; G0463

== ENCOUNTER 2025-01-10 10:11 | Outpatient (CLI) | payer OTHER, SELFPAY ==
--- OUTSIDE RECORDS SUMMARY | 2025-01-10 10:18 | XMS_ITS | Clinical Summary ---
Author Organization [facility] Address [address] [place] [address] Care Team Providers Care Caretaker Grounds Name Role Phone Loree Judd MD Primary Care Provider [phone] Source Comments [facility],non-owned Affiliates and Associated Physician Practices is amultiple site organization consisting of ambulatory clinics and hospital sitesin [place], [place], [place] and [place]. This disclosure is being madepursuant to the Care Everywhere program and may not contain all information available regarding this patient. Last updated 18.[facility] Allergies Active Allergy Reactions Criticality Noted Date Comments Amoxicillin Other 02/27/2017 ineffective Doesn't work Medications * Be aware that medications may not be up to date on this document. Alwaysverify current medications with the patient. Epjtijel-Vfy-Nk -FA ( VITAMIN WITH IRON) tablet Take 1 Tab by mouth 2 times daily Active famotidine (Pepcid) 20 MG tablet Take 20 mg by mouth at bedtime Active Vit-Fe Fumarate-FA ( vitamin) 28-0.8 MG tabletIndicatio ns: Take 1 tablet by mouth once daily Reasons: Active ondansetron (Zofran) 4 MG tabletIndicatio ns:Nausea and/or Vomiting in Take 4 mg by mouth every 6 hours as needed for Nausea/Vomiting Reasons: Nausea and Vomiting in Active vitamin D3 (Cholecalcifero l) 10 MCG (400 UNIT) tabletIndicatio ns:Vitamin D Deficiency Take 400 Units by mouth every 7 days Reasons: Vitamin D Deficiency Active OneTouch Delica Lancets 33G MISC Use 1 Each 4 times daily 100 Each 5 2 Active Additional Information Patient not taking.Reported on 07/07/2022 blood glucose (OneTouch Verio) test strip Use 1 (one) strip 4 times daily 100 strip 5 2 Active Additional Information Patient not taking.Reported on 07/14/2022 Insulin Pen Needle (TRUEplus Pen Angier) 32G X 4 MM MISC Use 1 Each 2 times daily 100 Each 5 2 Active Additional Information Patient not taking.Reported on 07/07/2022 Blood Pressure Monitoring (Blood Pressure Cuff) MISC Use 1 Units 2 times daily 1 Each 2 Active NIFEdipine CR 24hr (Adalat CC) 60 MG tablet Take 2 (two) tablets by mouth once daily 60 tablet 2 Active Additional Information Patient not taking.Reported on 08/11/2022 Active Problems Patient Care Coordination No te Formatting of this note migh t be different from the original. [employer] form completed. Diapers given. 07/07/2022, 08/11/22 Problem Noted Date Diagnosed Date Severe pre-eclampsia in third trimester 06/27/20 heart rate deceleratio ns affecting management of mother 06/27/2022 Poor growth affecting management of mother in third trimester 06/27/2022 Renal insufficiency affecting 06/27/20 Hypoxia 06/27/2022 Elevated blood pressure read ing without diagnosis of hypertension 06/25/2022 Obesity 02/27/2017 Dichorionic diamniotic twin gestation 02/27/2017 Resolved Problems Problem Noted Date Diagnosed Date Resolved Date premature rupture of membranes in third trimester 02/27/2017 06/27/2022 Immunizations Immunization Administration Dates Next Due TDAP (7yrs+) 03/01/2017 Family History Medical History Relation Name Comments Hypertension Father Hypertension Mother Cancer - Colon Paternal Grandfather Relation Name Status Comments Father Alive Maternal Grandfather Maternal Grandmother Alive Mother Alive Paternal Grandfather Paternal Grandmother Social History Tobacco Use Types Packs/Day Years Used Date Smoking Tobacco: Never Smokeless Tobacco: Never Alcohol Use Standard Drinks/Week Comments Not Currently 0 (1 standard drink = 0.6 oz pur e alcohol) Overall Financial Resource Strain (CARDIA) Answe r Date Recorded How hard is it for you to pa y for the very basics like food, housing, medical care, and heating? Not hard at all 07/14/2022 Hunger Vital Sign Answer Date Recorded Within the past 12 months, y ou worried that your food would run out before you got the money to buy more. Never true 07/14/20 22 Within the past 12 months, t he food you bought just didn't last and you didn't have money to get more. Never true 07/14/2022 PRAPARE - Transportation Answer Date Re corded In the past 12 months, has l ack of transportation kept you from medical appointments or from getting medications? No 07/05 In the past 12 months, has l ack of transportation kept you from meetings, work, or from getting things needed for daily living? No 07/14/2022 Housing Stability Vital Sign Answer Devon e Recorded In the last 12 months, was t here a time when you were not able to pay the mortgage or rent on time? No 07/14/2022 In the last 12 months, how many places have you lived? 1 07/14/2022 In the last 12 months, was t here a time when you did not have a steady place to sleep or slept in a correction (including now)? No 07/14/2022 Cotter Depression Scale Answer Date Recorded RETIRED: Total Score 6 07/14/2022 Last EPDS Self Harm Result Not on file 07/14 Comments No Sex and Gender Information Value Date Recorded Sex Assigned at Not on file Legal Sex Female 7:49 AM CDT Gender Identity Not on file Sexual Orientation Not on file Last Filed Vital Signs Vital Sign Reading Time Taken Comments Blood Pressure 138/85 08/11/2022 11:10 AM DEVELOPMENT REPRESENTATIVE Pulse 69 08/11/2022 11:10 AM DEVELOPMENT REPRESENTATIVE Temperature 36.8 C (98.2 F) 07/02/2022 3:15 PM CDT Respiratory Rate 20 08/11/2022 11:10 AM DEVELOPMENT REPRESENTATIVE Oxygen Saturation 99% 07/02/2022 3:15 PM CDT Inhaled Oxygen Concentration - - Weight 122.9 kg (271 lb) 08/11/2022 11:10 AM DEVELOPMENT REPRESENTATIVE Height 160 cm (5' 3 ) 06/25/2022 8:15 AM CDT Body Mass Index 48.01 06/25/2022 8:15 AM CDT Plan of Treatment Health Maintenance Due Date Last Done Comments PAP SMEAR 1995 HIV SCREENING 2010 HEPATITIS C SCREENING 03/30/2013 HEPATITIS B VACCINE (1 of 3 - 19+ 3-dose series) 2014 COVID-19 VACCINE (1 - 2023-2 5 season) 2024 DEPRESSION SCREENING 09/04/2024 INFLUENZA VACCINE (Season Ended) 2025 DTAP/TDAP/TD VACCINES (2 - T d or Tdap) 03/01/2027 03/01/2017 ZOSTER VACCINE (1 of 2) 2045 HIB VACCINE Aged Out No longer eligi ble based on patient's age to complete this topic HPV VACCINE Aged Out No longer eligi ble based on patient's age to complete this topic MENINGOCOCCAL (Group B) VACC INE SHARED DECISION-MAKING Aged Out No longer eligibl e based on patient's age to complete this topic MENINGOCOCCAL GROUPS A/C/Y/W VACCINE Aged Out No longer eligible b ased on patient's age to complete this topic PNEUMOCOCCAL VACCINE Aged Out No long er eligible based on patient's age to complete this topic Insurance [facility] Advance Directives * Full Code (Latest Code Status on File) Date Activated Date Inactivated Comments 06/27/2022 12:25 PM 06/27/2022 6:22 PM * Full Code Date Activated Date Inactivated Comments 06/25/2022 12:50 AM 06/27/2022 12:25 PM * Full Code Date Activated Date Inactivated Comments 03/03/2017 9:17 AM 03/06/2017 2:55 PM * Full Code Date Activated Date Inactivated Comments 02/27/2017 7:54 AM 03/03/2017 9:17 AM Care Teams Caretaker Grounds Relationship Specialty Start Date End Date Loree Judd MD [address] [place] [address] [address] [place] [address] PCP - General Family Medicine 05/17/22
--- OUTSIDE RECORDS SUMMARY | 2025-01-10 10:18 | XMS_ITS | Data Portability ---
Author Organization [facility] [employer], Main Office Address [address] [place] [address] Assessment No assessment recorded. Plan of Treatment Reminders Order Date Submit Date Provider Last Modified By Organization Details Last Modified Time Details Appointments None recorded. Lab lipid panel, serum 2023 024 [email or web address] 2 [facility] (Lab), [address] [place], [address], 4 08:20:14 CK (creatine kinase), total, serum 2023 024 [email or web address] 2 [facility] (Lab), [address] [place], [address], 4 08:20:14 CMP, serum or plasma 2023 024 [email or web address] 2 [facility] (Lab), [address] [place], [address], 4 08:20:14 gamma-gluta myl transferase (ggt), serum 2023 024 [email or web address] 2 [facility] (Lab), [address] [place], [address], 4 08:20:14 vitamin D, 25-hydroxy, total, serum 2023 024 [email or web address] 2 [facility] (Lab), [address] [place], [address], 4 08:20:13 magnesium, serum or plasma 2023 024 [email or web address] 2 [facility] (Lab), [address] [place], [address], 4 08:20:14 TSH, serum or plasma 2023 024 [email or web address] 2 [facility] (Lab), [address] [place], [address], 4 08:20:13 thyroid peroxidase (tpo) Ab, serum 2023 024 [email or web address] 2 [facility] (Lab), [address] [place], [address], 4 08:20:13 Hepatitis B virus core Ab, qual immunoassay , serum or plasma [email or web address] (Lab), [address] [place], [address], 4 08:20:13 unlisted lab - TSH receptor antibody 2023 024 [email or web address] 2 [facility] (Lab), [address] [place], [address], 4 08:20:13 CBC 2023 024 [email or web address] 2 [facility] (Lab), [address] [place], [address], 4 08:20:13 CMP, serum or plasma 2023 024 [email or web address] 2 [facility] (Lab), [address] [place], [address], 4 08:20:13 glycohemogl obin, total, blood 2023 024 [email or web address] 2 [facility] ([facility]), [address] [place], [address], 08:20:14 Referral None recorded. Procedures None recorded. Surgeries None recorded. Imaging None recorded. Medication Orders loratadine 10 mg tablet [email or web address], [address] [place] [address], [address], 4 20:31:05 ergocalcife rol (vitamin D2) 1,250 mcg (50,000 unit) capsule 2023 024 [facility] [address] [place] [address], [address], 4 12:29:49 dextroamphe tamine-amph etamine ER 20 mg 24hr capsule,ext end release 2023 024 [facility] [address] [place] [address], [address], 4 12:20:32 ergocalcife rol (vitamin D2) 1,250 mcg (50,000 unit) capsule 2022 023 [facility] [address] [place] [address], [address], 3 11:40:51 Vyvanse 40 mg capsule 2022 023 [facility] [address] [place] [address], [address], 3 11:40:51 Vyvanse 40 mg capsule 2022 023 [facility] [address] [place], [address], 3 15:32:19 Patient TargetsNo targets recorded. Patient InstructionsNo instructions recorded. Reason for Referral None Reported. Results Created Date Observation Date Name Description Value Unit Range Abnormal Flag Note LastModifiedBy Organization Detail LastModifiedTime 08/05/20 21 08/05/2021 pregn boby test, urine HCG negati ve Not Available [facility] [place] [address], [address], [place], [address], 08/05/2021 14:56:37 02/25/20 22 02/24/2022 imagi ng/di agnos tic resul t No observ ation record ed. [id number], [place], [address], 11/02/2022 05:06:44 04/28/20 22 02/24/2022 imagi ng/di agnos tic resul t No observ ation record ed. [id number], [place], [address], 11/02/2022 05:06:44 06/12/20 23 06/12/2023 CT, cervi pardeep spine , w/o contr ast No observ ation record ed. [email or web address] [address] [facility], [place], [address], 06/21/2023 12:12:35 Result Notes None recorded. Problems Name Problem SNOMED Code Status Onset Date Resolution Date Notes Provider Name and Address Organization Details Recorded Time Morbid obesity 334948303 Active 2022 Loree Judd MD [address], [place], [address] , [employer] [facility] [employer] 3 15:26:14 Binge eating disorder 760635337 Active 2022 Loree Judd MD [address], [place], [address] , [employer] [facility] [employer] 3 15:29:08 Attention deficit hyperactivity disorder 285948989 Active 2022 Loree Judd MD [address], [place], [address] , [employer] 3 15:30:27 Attention deficit hyperactivity disorder, predominantly inattentive type 01786069 Active 2022 Loree Judd MD [address], [place], [address] , [place] [facility] [employer] 3 11:37:46 Vitamin D below reference range 250800805 Active 2022 Loree Judd MD [address], [place], [address] , [employer] 3 11:38:16 Vitamin D deficiency 23847582 Active 2022 Loree Judd MD [address], [place], [address] , [employer] 3 11:38:32 Neck pain 59651527 Active 2022 Loree Judd MD [address], [address], [place], [address] , [employer] 3 14:46:18 Allergic rhinitis 61510468 Active 2023 HANK Bledsoe [address], [address], [place], [address] , [employer] 4 12:21:10 Thyroid disorder screening Active 2023 HANK Bledsoe [address], [address], [place], [address] , [employer] 4 12:26:24 At increased risk of nutritional deficit 632105049 Active 2023 HANK Bledsoe [address], [address], [place], [address] , [employer] 4 12:27:56 Hyperlipidemi a screening Active 2023 HANK Bledsoe [address], [place], [address] , [facility] [facility] 4 12:28:33 Abdominal pain 46768345 Active Not Available [facility] 3 04:50:37 Mucus in stool 196342442 Active Not Available [facility] 3 04:50:37 Proctitis 5603650 Active 2019 Not Available [facility] 3 04:50:37 Diarrhea 53157925 Active Not Available [facility] 3 04:50:37 Colitis 81433547 Active 2019 Not Available [facility] 3 04:50:37 Notes:had suicidal thoughts on antidepressants years ago . Problem Notes None recorded. Procedures Surgical History Date Name Laterality Status Provider Name and Address Organization Details Recorded Time 10/29/19 21 [employer] Procedure completed Not Available [facility] 2022 04:41:40 05/06/20 19 [employer] Procedure completed Not Available [facility] 2022 04:41:40 hysteroscopy completed [facility] 11/02/2022 04:41:40 Tonsillectomy completed Not Available [facility] 11/02/2022 04:41:40 [employer] Surgery completed Not Available [facility] 11/02/2022 04:41:40 [place] Teeth completed Not Available [facility] 11/02/2022 04:41:40 Cholecystectomy completed Not Available [facility] 11/02/2022 04:41:40 Colonoscopy completed Not Available [facility] 11/02/2022 04:41:40 Imaging Results Imaging Date Name Status LastModified by Organiz ation Details LastModified Time 02/24/2022 imaging/diagn ostic result completed [id number] [id number], [address], 11/02/2022 05:06:44 02/24/2022 imaging/diagn ostic result completed [id number] [address], [address], 11/02/2022 05:06:44 06/12/2023 CT, cervical spine, w/o contrast completed [email or web address] [address], [address], 06/21/2023 12:12:35 Procedure Notes None recorded. Medical Equipment None Reported. Allergies Allergen ID Allergen Name Allergen Category Reaction Reaction Severity Criticality Documentation Date Start Date Code Code System Note Provider Name and Address Organization Details Recorded Time 8703 ibuprofen medicatio n other mild Not available 11/02/2022 5640 RxNorm pt had gastr o surge ry Not Available [facility] 3 05:06:08 8704 amoxicill in medicatio n Not available Not available Not available 11/02/2022 723 RxNorm Not Available [facility] 3 05:06:08 Medications Name Sig Start Date Stop Date Status Note LastModified by Organization Details LastModified Time medroxyprog esterone 10 mg tablet TAKE 1 TABLET EVERY DAY BY ORAL ROUTE FOR 10 DAYS. 08/19 completed Not Available Not Available Not Available Vitamin B-6 25 mg tablet TAKE 1 TABLET BY MOUTH THREE TIMES A DAY active Not Available Not Available No t Available labetalol 200 mg tablet TAKE 2 TABLETS BY MOUTH EVERY 12 HOURS active Not Available Not Available No t Available cetirizine 10 mg tablet 10 MG ORALLY DAILY FOR 30 DAYS active Not Available Not Available No t Available azithromyci n 250 mg tablet TAKE 2 TABLETS BY MOUTH TODAY, THEN TAKE 1 TABLET DAILY FOR 4 DAYS 01/26 completed Not Available Not Available Not Available metronidazo le 0.75 % (37.5 mg/5 gram) vaginal gel 1 APPLICATI ON VAGINALLY TWICE A DAY FOR 5 DAYS active Not Available Not Available No t Available prednisone 20 mg tablet TAKE 1 TABLET BY MOUTH EVERY DAY 01/26 completed Not Available Not Available Not Available metronidazo le 500 mg tablet TAKE 1 TABLET BY MOUTH TWICE A DAY FOR 7 DAYS active Not Available Not Available No t Available phentermine 37.5 mg tablet TAKE 1 TABLET BY MOUTH EVERY DAY active Not Available Not Available No t Available acetaminoph en 300 mg-codeine 30 mg tablet TAKE 1 TABLET BY MOUTH EVERY 6 HOURS NEEDED FOR PAIN active Not Available Not Available No t Available levofloxaci n 250 mg tablet Take 1 tablet every day by oral route for 5 days. active Not Available Not Available No t Available dextroamphe tamine-amph etamine ER 20 mg 24hr capsule,ext end release TAKE 1 CAPSULE BY MOUTH EVERY DAY active Not Available Not Available No t Available nifedipine ER 90 mg tablet,exte nded release 24 hr TAKE 1 TABLET BY MOUTH EVERY DAY active Not Available Not Available No t Available hyoscyamine sulfate 0.125 mg tablet 04/23 completed Not Available Not Available Not Available clindamycin 2 % vaginal cream active Not Available Not Available Not Available ergocalcife rol (vitamin D2) 1,250 mcg (50,000 unit) capsule TAKE 1 CAPSULE EVERY WEEK BY ORAL ROUTE. active Not Available Not Available No t Available budesonide DR - ER 3 mg capsule,del ayed,extend ed release active Not Available Not Available N ot Available ibuprofen 600 mg tablet 1 TAB BY MOUTH EVERY 6 HOURS NEEDED FOR ABDOMINAL CRAMPING DISCOMFOR T active Not Available Not Available No t Available methylpredn isolone 4 mg tablets in a dose pack TAKE 6 TABLETS ON DAY 1 DIRECTED ON PACKAGE AND DECREASE BY 1 TAB EACH DAY FOR A TOTAL OF 6 DAYS 01/26 completed Not Available Not Available Not Available norethindro ne (contracept otoniel) 0.35 mg tablet TAKE 1 TABLET BY MOUTH EVERY DAY active Not Available Not Available No t Available nifedipine ER 60 mg tablet,exte nded release TAKE 2 TABLETS BY MOUTH ONCE DAILY active Not Available Not Available No t Available ondansetron 4 mg disintegrat ing tablet TAKE 1 TABLET BY MOUTH EVERY 6 HOURS NEEDED FOR NAUSEA AND VOMITING active Not Available Not Available No t Available fluticasone propionate 50 mcg/actuati on nasal spray,suspe nsion 1 SPRAY INTRANASA LLY TWICE A DAY ADMINISTE R INTO EACH NOSTRIL active Not Available Not Available No t Available loratadine 10 mg tablet Take 1 tablet every day by oral route. 2023 active Not Available Not Available Not Avai lable diazepam 5 mg tablet 5 MG ORALLY TWICE A DAY NEEDED FOR MUSCLE SPASM active Not Available Not Available No t Available oxycodone 5 mg tablet TAKE 1 TABLET BY MOUTH EVERY 6 HOURS NEEDED FOR PAIN active Not Available Not Available No t Available cyanocobala min (vitamin B-12) 1 PO QD 08/19 completed Not Available Not Available Not Available Vyvanse 40 mg capsule Take 1 capsule every day by oral route for 30 days. active Not Available Not Available No t Available Nexplanon 68 mg subdermal implant Inject by subcutane ous route. 10/29 completed Not Available Not Available Not Available Oscimin SR 0.375 mg tablet,exte nded release Take 1 tablet every 12 hours by oral route as needed for 30 days. 08/19 completed Not Available Not Available Not Available OneTouch Verio test strips TESTS 4 TIMES A DAY active Not Available Not Available No t Available Estarylla 0.25 mg-0.035 mg tablet 04/23 completed Not Available Not Available Not Available Tri-Estaryl la (28) 0.18 mg(7)/0.215 mg(7)/0.25 mg(7)-0.035 mg tablet 04/23 completed Not Available Not Available Not Available Levemir FlexTouch U-100 Insulin 100 unit/mL (3 mL) subcutaneou s pen INJECT 12 UNITS IN THE MORNING AND 12 UNITS AT BEDTIME. TAKE DOSAGES APPROXIMA TELY 12 HOURS APART. active Not Available Not Available No t Available Nighttime Sleep-Aid (doxylamine ) 25 mg tablet TAKE 1 TABLET BY MOUTH EVERYDAY AT BEDTIME active Not Available Not Available No t Available OneTouch Delica Plus Lancet 33 gauge TESTS 4 TIMES A DAY active Not Available Not Available No t Available EluRyng 0.12 mg-0.015 mg/24 hr vaginal ring INSERT 1 RING VAGINALLY DIRECTED. REMOVE AFTER 3 WEEKS & WAIT 7 DAYS BEFORE INSERTING A NEW RING active Not Available Not Available No t Available Vitals Date Recorded Body mass index (BMI) Body height Oxygen saturation Oxygen saturation in Arterial blood by Pulse oximetry Heart rate Body temperature Body weight Systolic blood pressure Diastolic blood pressure Provider Name and Address Organization Details Last Updated DateTime 1 50.5 kg/m2 160.02 cm 99 % 99 % 106 /min 97.6 [degF] 117027. 83 g 150 mm[Hg] 90 mm[Hg] Not Available [facility] 3 04:46:03 Date Recorded Body mass index (BMI) Body height Oxygen saturation Oxygen saturation in Arterial blood by Pulse oximetry Heart rate Body temperature Body weight Systolic blood pressure Diastolic blood pressure Provider Name and Address Organization Details Last Updated DateTime 2 51.4 kg/m2 160.02 cm 97 % 97 % 110 /min 97.4 [degF] 069684. 79 g 160 mm[Hg] 100 mm[Hg] Not Available [facility] 3 04:46:04 Date Recorded Body height Body mass index (BMI) Body weight Body temperature Heart rate Oxygen saturation Oxygen saturation in Arterial blood by Pulse oximetry Systolic blood pressure Diastolic blood pressure Provider Name and Address Organization Details Last Updated DateTime 3 160.02 cm 51.2 kg/m2 332109. 19 g 98.4 [degF] 104 /min 98 % 98 % 134 mm[Hg] 80 mm[Hg] ZUHAIR Majano [facility] 3 15:15:15 Date Recorded Body height Body mass index (BMI) Body weight Body temperature Heart rate Oxygen saturation Oxygen saturation in Arterial blood by Pulse oximetry Systolic blood pressure Diastolic blood pressure Provider Name and Address Organization Details Last Updated DateTime 3 160.02 cm 50.8 kg/m2 576636. 01 g 97.2 [degF] 88 /min 98 % 98 % 128 mm[Hg] 82 mm[Hg] Padma cho CMA [facility] 3 11:29:55 Date Recorded Body height Body mass index (BMI) Body weight Body temperature Heart rate Respiratory rate Oxygen saturation Oxygen saturation in Arterial blood by Pulse oximetry Systolic blood pressure Diastolic blood pressure Provider Name and Address Organization Details Last Updated DateTime 4 160.02 cm 53.3 kg/m2 616762. 65 g 97.9 [degF] 88 /min 24 /min 98 % 98 % 132 mm[Hg] 78 mm[Hg] Saroj Ramesh [facility] 4 12:07:41 Social History Question Answer Notes LastModified by Organizat ion Details LastModified Time Tobacco Smoking Status Never Smoker Not Available [facility] 11/02/2022 04:24:29 Do You Have An Advance Directive? No [id number] Information not available 11/02/2022 What Is Your Level Of Alcohol Consumption? None MIGRATION.03727 [id number] Information not available 11/02/2022 What Is Your Level Of Caffeine Consumption? None MIGRATION.71907 35149 Information not available 11/02/2022 In The 14 Days Before Symptom Onset, Have You Had Close Contact With A Laboratory-confir med COVID-19 While That Case Was Ill? No MIGRATION.64762 04880 Information not available 11/02/2022 In The 14 Days Before Symptom Onset, Have You Had Close Contact With A Person Who Is Under Investigation For COVID-19 While That Person Was Ill? No MIGRATION.34486 32525 Information not available 11/02/2022 What Type Of Diet Are You Following? REGULAR Tries To Do Gluten Free MIGRATION.70298 12247 Information not available 11/02/2022 Do You Or Have You Ever Used E-cigarettes Or Vape? Never Used Electronic Cigarettes MIGRATION.97302 [id number] Information not available 11/02/2022 What Is Your Relationship Status? MIGRATION.69221 82879 Information not available 11/02/2022 Do You Use Your Seat Belt Or Car Seat Routinely? Yes MIGRATION.16290 54326 Information not available 11/02/2022 Do You Have Smoke And Carbon Monoxide Detectors In Your Home? Yes MIGRATION.56835 99803 Information not available 11/02/2022 Do You Feel Stressed (tense, Restless, Nervous, Or Anxious, Or Unable To Sleep At Night)? [id number] MIGRATION.86148 29179 Information not available 11/02/2022 Do You Use Any Illicit Or Recreational Drugs? No MIGRATION.55759 46985 Information not available 11/02/2022 Do You Use Sunscreen Routinely? No MIGRATION.57773 45701 Information not available 11/02/2022 Have You Recently Traveled Abroad? No MIGRATION.60788 35004 Information not available 11/02/2022 Sex: Unknown Functional Status Question Answer Note LastModified by Organizat ion Details LastModified Time What is your exercise level? Occasional [id number] Information not available 11/02/2022 Mental Status None recorded. Family History Relationship Description Onset Age of this Age Resolved Age Notes LastModified by Organization Details LastModified Time Maternal Aunt Family history of malignant neoplasm [id number] Not available 11/02/2022 04:41:46 Paternal Grandfather Family history of malignant neoplasm [id number] [id number] Not available 11/02/2022 04:41:47 Father Hypertensive disorder [id number] [id number] Not available 11/02/2022 04:41:47 Mother Hypertensive disorder [id number] [id number] Not available 11/02/2022 04:41:47 Medical History Condition Response ADD/ADHD Y OTHER # 1 Y BOWEL PROBLEMS Y Gynecological History Statement/Question Response Date of Last Pap 05/13/2020 Current Control Method Vaginal Rin g Desired Control Method Vaginal Rin g Date of LMP 07/23/2021 Breast Problems no Obstetrics History GPAL:G 3 P 1 0 2 2 Type Value Multiple Births 1 Full Term 1 Induced 2 Living 2 Total 3 Past Encounters Encounter ID Performer Location Encounter Start Date Encounter Closed Date Diagnosis/Indication Diagnosis SNOMED-CT Code Diagnosis ICD10 Code Diagnosis Note [id number] Loree Judd MD [facility] [place] [facility] [address] , [place] [address] 12/28/2020 00:00:00 12/28/2020 21:55:19 [id number] [facility]_Histor ic_[facility] _ATHENA_M IGRATION_ DEFAULT_1 _1 , 01/21/2021 00:00:00 01/21/2021 15:24:20 [id number] Loree Judd MD [facility] [place] [address] 03/03/2021 00:00:00 03/04/2021 06:04:31 [id number] Loree Judd MD [facility] [place] [facility] [address] , [place] [address] 03/30/2021 00:00:00 03/30/2021 20:12:40 [id number] _ATHN_MIGR ATION_1 _ATHENA_M IGRATION_ DEFAULT_1 _1 , 04/14/2021 00:00:00 04/14/2021 11:17:03 [id number] S_Histor ic_Gateway _ATHENA_M IGRATION_ DEFAULT_1 _1 , 04/21/2021 00:00:00 04/21/2021 15:49:54 [id number] Loree Judd MD [facility] [place] [address] [facility] [address] , [place] [address] 04/28/2021 00:00:00 04/28/2021 21:14:27 [id number] [facility] ic_[facility] _ATHENA_M IGRATION_ DEFAULT_1 _1 , 08/05/2021 00:00:00 08/05/2021 17:44:38 [id number] Loree Judd MD [facility] [place] [address] [facility] [place] [address] 08/19/2021 00:00:00 08/19/2021 20:57:20 [id number] Loree Judd MD [facility] [place] [address] [place] [address] [place] [address] 01/26/2022 00:00:00 01/26/2022 22:03:27 [id number] Loree Judd MD [facility] [place] [address] [place] [address] [place] [address] 03/21/2023 14:32:27 03/21/2023 15:47:06 Adult health examination 095371414 Z00.00 Morbid obesity 406365058 E66.01 Binge eating disorder 43 3524000 F50.81 F/u in 1 month Attention deficit hyperactivity disorder 894499788 F90.9 [id number] Loree Judd MD [facility] [address] [place] [address] 06/16/2023 11:15:32 06/16/2023 11:40:39 Attention deficit hyperactivity disorder, predominantly inattentive type 84947436 F90.0 Vitamin D deficiency 347 55655 E55.9 Neck pain 93182913 M54.2 Continue diazepam and use ice/heat and analgesic rub. If no better may RTC for trigger point injections . [id number] Loree Judd MD [facility] [place] [address] , [place] [address] 12/06/2023 11:59:38 12/06/2023 12:53:00 Attention deficit hyperactivity disorder, predominantly inattentive type 45172069 F90.0 Allergic rhinitis 390964 04 J30.9 Vitamin D deficiency 347 59000 E55.9 Thyroid di sorder screening 952930001 Z13.29 At [facility] ed risk of nutritional deficit 041913870 Z91.89 Hyperlipid emia screening 891299250 Z13.220 Morbid obesity 453526080 E66.01 Health Concerns Section Related Observation LastModified by Organization Detai ls LastModified Time None Recorded Concern Status LastModified by Organization Details LastModified Time None Recorded Advance Directives Directive N: Payers Encounter Date Sequence Insurance Name Policy Number Policy Garcia Covered Member ID Garcia Member ID Guarantor Name 03/21/2023 1 [facility] ON OR AFTER 03/04/21 (MEDICAID REPLACEMENT - HMO) [employer] [id number] [employer] 06/16/2023 1 [facility] ON OR AFTER 03/04/21 (MEDICAID REPLACEMENT - HMO) [employer] [id number] [employer] 12/06/2023 1 [facility] ON OR AFTER 03/04/21 (MEDICAID REPLACEMENT - HMO) [employer] [id number] [employer] Notes Date Note Type Note Provider Name and Address Organization Details Recorded Time 03/21/2023 text/html Here today for a wellness visit. Had twins Was down to 260#s but after breast feeding has weight increase. Got BW done and A1C was ok. Has been on phentermine and had s/e with this.Has not taken adderall for a long time. She has BED. Wants to try vyvanse for this and ADD Loree Judd MD [address], [place], [address], [employer] 03/21/2023 19:04:32 06/16/2023 text/html Here today for m ed check. Had to go to ER last week and went to ER Had a pulled muscle in neck. Given diazepam and taking it daily as needed. Using ice. Had a CT Scan of neck. It was causing headaches on left neck and to head. Loree Judd MD [address], [place], [address], [employer] 06/17/2023 14:47:47 12/06/2023 text/html needs refills HANK Bledsoe [address] [facility] [address], [place], [address], [facility] [place] [employer] 12/18/2023 20:32:51 OBGyn Episode No OBEpisode recorded.
--- OUTSIDE RECORDS SUMMARY | 2025-01-10 10:18 | XMS_ITS | Clinical Summary ---
Author Organization [facility] Address [address] [place] [address] Phone Care Team Providers Care Doctor Of Nurse Anesthesia Name Role Phone Loree Judd MD Primary Care Provider [phone] Social History Tobacco Use Types Packs/Day Years Used Date Smoking Tobacco: Never Assessed Comments Unknown Sex and Gender Information Value Date Recorded Sex Assigned at Not on file Legal Sex Female 4:50 PM CDT Gender Identity Not on file Sexual Orientation Not on file Plan of Treatment Health Maintenance Due Date Last Done Comments DTAP/TDAP/TD VACCINES (1 - Tdap) 2014 HEPATITIS B VACCINES (1 of 3 - 19+ 3-dose series) 2014 CERVICAL CANCER SCREENING 2016 HPV/Cotest (21-29) 2016 PAP SMEAR 2016 INFLUENZA VACCINE (#1) 2024 HPV VACCINES Aged Out No longer eligi ble based on patient's age to complete this topic Insurance [facility] [id number] Care Teams Doctor Of Nurse Anesthesia Relationship Specialty Start Date End Date Loree Judd MD PCP - General Family Practice 01/28/21
--- OUTSIDE RECORDS SUMMARY | 2025-01-10 10:18 | XMS_ITS | Clinical Summary ---
Author Organization [facility] Address [address] [place] [address] Phone Care Team Providers Care Career Placement Services Counselor Name Role Phone Rahel Trevizo APRN Primary Care Provider Allergies Active Allergy Reactions Criticality Noted Date Comments Amoxicillin Other (see Comments) 04/25/2019 Doesn't work Medications Diphenoxylate-At ropine (LOMOTIL PO) Take by mouth. Active Family History Medical History Relation Name Comments Crohn's Disease Mother Colon Cancer Paternal Grandfather Relation Name Status Comments Mother Paternal Grandfather Social History Tobacco Use Types Packs/Day Years Used Date Smoking Tobacco: Never Smokeless Tobacco: Never Tobacco Cessation:Counseling Given: Yes Alcohol Use Standard Drinks/Week Comments No 0 (1 standard drink = 0.6 oz pur e alcohol) Comments No Sex and Gender Information Value Date Recorded Sex Assigned at Not on file Legal Sex Female 10:26 PM CDT Gender Identity Not on file Sexual Orientation Not on file Last Filed Vital Signs Vital Sign Reading Time Taken Comments Blood Pressure 122/84 04/25/2019 2:45 PM CDT Pulse 84 04/25/2019 2:45 PM CDT Temperature 36.8 C (98.2 F) 02/27/2017 5:49 AM CDT Respiratory Rate 18 04/25/2019 2:45 PM CDT Oxygen Saturation 98% 04/25/2019 2:45 PM CDT Inhaled Oxygen Concentration - - Weight 122.8 kg (270 lb 12.8 oz) 04/25/2019 2:45 PM CDT Height 160 cm (5' 3 ) 02/27/2017 6:20 AM CDT Body Mass Index 47.97 02/27/2017 6:20 AM CDT Plan of Treatment Health Maintenance Due Date Last Done Comments Hepatitis C Virus (HCV) Screening 1995 SARS-COV-2 Immunization (2023- season) 2024 Influenza Immunization (Season Ended) 2025 Respiratory Syncytial Virus (RSV) Immunization (Adult) (1 - 1-dose 75+ series) 2070 Hepatitis B Immunization Completed 996, 1995, 1995 DTaP/Tdap/Td Immunization Discontinued 2008, 01/28/2000, 06/20/1997, Additional history exists Human Papillomavirus (HPV) Immunization Discontinued 05/07/2009 Meningococcal Immunization (ACWY) Aged Out 05/07/2009 No longer eligible based on patient's age to complete this topic TdaP Immunization Completed 05/07/2009 Pneumococcal Immunization Combined Aged Out No longer eligible based on patient's age to complete this topic Rotavirus Immunization Aged Out No lo nger eligible based on patient's age to complete this topic Insurance MEDICAID [employer] Advance Directives * Full Code (Latest Code Status on File) Date Activated Date Inactivated Comments 02/27/2017 6:01 AM 02/27/2017 8:53 AM CPR-Full Devan atment: FULL ARREST: Attempt Resuscitation/CPR wit intubation and mechanical ventilation. PRE-ARREST: Use entire range of life support measures to stabilize the patient. Care Teams Career Placement Services Counselor Relationship Specialty Start Date End Date Rahel Trevizo, KAYLIN [address] [address] [place] [address] PCP - General Family Medicine 01/11/19
[2025-01-10 10:31] LABS: Hematocrit 33.6 % (37.0-47.0); Hemoglobin 10.2 g/dL (12.0-15.0); Mean Corpuscular HGB Conc 30.4 g/dl (32-36); Mean Corpuscular Hemoglobin 25.8 pg (26-34); Mean Corpuscular Volume 84.8 fl (80-100); Mean Platelet Volume 10.6 fl (7.4-10.4); Platelet Count Result 307 k/mm3 (150-375); Red Blood Count 3.96 M/mm3 (4.2-5.4); Red Cell Distribution Width 15.6 % (11.5-14.5); White Blood Count 5.8 K/mm3 (4.5-10.0)
[2025-01-10 10:42] LABS: Anion Gap 8 mmol/L (4-12); Blood Urea Nitrogen 9 mg/dL (7-17); Calcium 8.6 mg/dL (8.4-10.2); Carbon Dioxide 26 mmol/L (22-30); Chloride 106 mmol/L (98-107); Estimated Glomerular Filt Rate > 60; Glucose 83 mg/dL (65-110); Potassium 3.9 mmol/L (3.4-5.0); Sodium 140 mmol/L (137-145)
[2025-01-10 10:57] LABS: Prothrombin Time 13.4 Seconds (11.1-14.7)
[2025-01-10 10:58] LABS: Partial Thromboplastin Time 31.1 Seconds (22.3-36.8)
== END 2025-01-10 10:12 | disposition home or self-care (01) ==
LOC: ANHSURGERY 10:14
PROVIDERS: Anesthesiology; Visit Provider Student in an Organized Health Care Education/Training Program
DX: Z30.2 Encounter for sterilization (principal); N18.9 Chronic kidney disease, unspecified
CPT/HCPCS: 36415; 80048; 85027; 85610; 85730

== ENCOUNTER 2025-01-14 01:15 | Day surgery (SDC) | payer OTHER, SELFPAY ==
[2024-12-31 13:32] VITALS: BMI 53.2
--- NOTE | 2024-12-31 13:34 | PC.NURSE ---
Report to the Outpatient Waiting Room, entrance under the green pavilion located off [facility], at time _1030_ on date _[id number]_. Planned Procedure Time: _1230_.? Time changes happen often and if your time is changed the preop area will call you the afternoon before. - You and your visitor will be asked to self-screen and do not enter if you have any COVID symptoms. Please call surgeon if you need to reschedule. - A mask is optional within the hospital at this time. Patients may have clear liquids (water, carbonated beverages, clear teas, apple juice) until 3 hours prior to surgery with a maximum of 20 ounces. - No food from midnight until time of surgery and no smoking, or chewing tobacco (or any form of nicotine). No chewing gum, candy or mints. Take only the following medications with a SIP of water on the morning of surgery: __Norethindrone___ DO NOT STOP ANY OF YOUR OTHER PRESCRIPTION MEDICATIONS PRIOR TO SURGERY EXCEPT THE FOLLOWING Hold all vitamins and supplements for 3 days per anesthesiologist. Medications to discontinue per physician Date to take last dose Please no make-up, nail occitan, hairspray, perfume, deodorant, or body powder the day of surgery.? No jewelry (including any body piercings) or valuables the day of surgery, leave them at home.? Please take a shower or bath the night before, or the morning of, surgery with an antibacterial soap.? Wear comfortable, loose fitting clothing. - Jewelry must be removed prior to entering the operating room.? Rings and piercings that are not removed may be cut off. - The hospital will not accept responsibility for valuables.? - Please leave all valuables, including medications, at home the day of surgery. If you are going home after surgery, a licensed frontload driver must drive you home.? - NO public transportation without another adult if you receive anesthesia. - We recommend that an adult stay with you for 24 hours following discharge. - We also recommend that you do not drive, make important decision, drink alcoholic beverages, or take any drugs that were not prescribed by your health care provider for at least 24 hours after your discharge time. Follow any additional instructions given to you from your surgeon. Telephone instructions given to Juancarlos___and asked if any additional questions and then verbalized understanding. Patient advised to call surgeon office or pre surgery nurse liaison [phone] if any additional questions.
--- NOTE | 2025-01-13 13:56 | PM.IMHP ---
H&P: HPI History of Present Illness Date/Time: 01/13/25 13:56 Chief Complaint: Desires permanent sterilization Narrative: 29-year-old female who presents for laparoscopic bilateral salpingectomy for permanent sterilization. Review of Systems Cardiovascular: Cardiovascular: Denies chest pain, Denies leg edema, Denies palpitations, Denies dyspnea and Denies dyspnea on exertion Respiratory: Respiratory: Denies cough, Denies dyspnea and Denies dyspnea on exertion Gastrointestinal: Gastrointestinal: Denies abdominal pain, Denies constipation, Denies diarrhea, Denies nausea and Denies vomiting Genitourinary: Genitourinary: Denies hematuria, Denies urinary frequency, Denies dysuria, Denies pelvic pain, Denies urinary incontinence and Denies vaginal discharge Neurologic: Reports system reviewed and no additional complaints, except as documented Psychiatric: Psychiatric: Reports no additional psychiatric complaints Endocrine: Endocrine: Denies palpitations PMFSH Surgical History Surgical History Hx of colonoscopy Hx of tonsillectomy Hx of cholecystectomy Family History Family History Mother Hypertension Father Hypertension Grandparent Hypertension Social History Social History Smoking status: Never smoker Second hand tobacco smoke exposure: No Alcohol intake: never Substance use: never Lack of Transportation: No Lack of Food: Never True Current Housing: I Have Housing Concerned About Future Housing: Decline to Answer Difficulty Paying Gas/Electric Bills: YES Difficulty Paying for Meds: No Currently Unemployed: No Education: Bachelor's Degree Difficulty w/ Childcare or Family Care: No Living arrangements: with family Gender identity (if verbalized by the patient): Female Spiritual care concerns: No Agree to blood products: Yes Meds Home Medications and Allergies Home Medications ?Medication ?Instructions ?Recorded ?Confirmed ?Type loratadine 10 mg capsule (Allergy 10 mg PO DAILY 12/05/24 12/31/24 History Relief (loratadine)) norethindrone (contraceptive) 0.35 0.35 mg PO DAILY #84 tabs 12/05/24 12/31/24 Rx mg tablet albuterol 90 mcg/actuation aerosol 90 mcg inhalation QID PRN dyspnea 12/31/24 12/31/24 History inhaler famotidine 20 mg tablet (Acid 20 mg PO DAILY 12/31/24 12/31/24 History Controller) Allergies Allergy/AdvReac Type Severity Reaction Status Date / Time amoxicillin Allergy Other Verified 12/31/24 13:21 Exam Const: General: no acute distress Eyes: EOM: EOMs intact bilaterally Neck: Neck: supple Thyroid: thyroid normal Chest: Breast/axilla inspection: normal inspection of the breasts Breast/axilla palpation: normal palpation of the breasts, normal palpation of the axillae and no axillary lymphadenopathy Resp: Effort & Inspection: normal respiratory effort Auscultation: clear to auscultation bilaterally Cardio: Rate: regular rate Rhythm: regular rhythm GI: Inspection: non-distended GI Palp: Yes Soft to palpation, No Tenderness to palpation present (GI) and No Guarding due to palpation present (GI) Auscultation: normal bowel sounds : General: No bladder normal to palpation External Female Exam: normal external appearance Speculum Exam - Vagina: normal vaginal discharge and No vaginal bleeding Speculum Exam - Cervix: nontender Bimanual exam- vagina & uterus: No bladder normal to palpation and No Cervical tenderness present OB/external & speculum: No vaginal bleeding Skin: General skin exam: normal color and no rashes or lesions noted Neuro: Cognition (Neuro): normal cognition Speech: normal speech Extrem: General: normal to inspection and no edema Psych: Mental Status: mental status grossly normal Affect: normal affect Assessment and Plan Assessment and plan (1) Sterilization consult: Code(s): Z30.09 - Encounter for other general counseling and advice on contraception Status: Acute Assessment and Plan: 29-year-old female who presents for laparoscopic bilateral salpingectomy for permanent sterilization Risks, benefits, alternatives discussed Counseled patient on long-acting reversible contraceptives Patient wishes to proceed with permanent sterilization
[2025-01-14] VITALS (8 sets, daily range): BP systolic 121–151; BP diastolic 75–94; PULSE 66–103; RESP 16–22; TEMP 36.2–36.6; O2SAT 96–100; BMI 53.4
--- OUTSIDE RECORDS SUMMARY | 2025-01-14 01:18 | XMS_ITS | Clinical Summary ---
Author Organization [facility] Address [address] [place] [address] Phone Care Team Providers Care Postdoctoral Research Fellow Name Role Phone Loree Judd MD Primary Care Provider [phone] Social History Tobacco Use Types Packs/Day Years [...] patient's age to complete this topic Insurance [facility] [id number] Care Teams Postdoctoral Research Fellow Relationship Specialty Start Date End Date Loree Judd MD PCP - General Family Practice 01/28/21
--- OUTSIDE RECORDS SUMMARY | 2025-01-14 01:18 | XMS_ITS | Data Portability ---
Author Organization [facility] [employer], Main Office Address [address] [place] [address] Assessment No assessment recorded. Plan of Treatment Reminders Order Date Submit Date Provider Last Modified By Organization Details Last Modified Time Details Appointments None recorded. Lab lipid panel, serum 2023 024 [email or web address] 2 [facility] (Lab), [address] [place], [address], 4 08:20:14 CK (creatine kinase), total, serum 2023 024 [email or web address] 2 [facility] (Lab), [address] [place], [address], 4 08:20:14 CMP, serum or plasma 2023 024 [email or web address] 2 [facility] (Lab), [address] [place], [address], 4 08:20:14 gamma-gluta myl transferase (ggt), serum 2023 024 [email or web address] 2 [facility] (Lab), [address] [place], [address], 4 08:20:14 vitamin D, 25-hydroxy, total, serum 2023 024 [email or web address] 2 [facility] (Lab), [address] [place], [address], 4 08:20:13 magnesium, serum or plasma 2023 024 [email or web address] (Lab), [address] [place], [address], 4 08:20:14 TSH, serum or plasma 2023 024 [email or web address] (Lab), [address] [place], [address], 4 08:20:13 thyroid peroxidase (tpo) Ab, serum 2023 024 [email or web address] (Lab), [address] [place], [address], 4 08:20:13 Hepatitis B virus core Ab, qual immunoassay , serum or plasma [email or web address] (Lab), [address] [place], [address], 4 08:20:13 unlisted lab - TSH receptor antibody 2023 024 [email or web address] 2 [facility] (Lab), [address] [place], [address], 4 08:20:13 CBC 2023 024 [email or web address] 2 [facility] (Lab), [address] [place], [address], 4 08:20:13 CMP, serum or plasma 2023 024 [email or web address] 2 [facility] (Lab), [address] [place], [address], 4 08:20:13 glycohemogl obin, total, blood 2023 024 [email or web address] 2 [facility] ([facility]), [address] [place], [address], 08:20:14 Referral None recorded. Procedures None recorded. Surgeries None recorded. Imaging None recorded. Medication Orders loratadine 10 mg tablet [email or web address], [address] [place] [address], [address], 4 20:31:05 ergocalcife rol (vitamin D2) 1,250 mcg (50,000 unit) capsule 2023 024 [facility] [address] [place] [address], [address], 4 12:29:49 dextroamphe tamine-amph etamine ER 20 mg 24hr capsule,ext end release 2023 024 [facility], [address] [place] [address], [address], 4 12:20:32 ergocalcife rol (vitamin D2) 1,250 mcg (50,000 unit) capsule 2022 023 [facility], [address] [place] [address], [address], 3 11:40:51 Vyvanse 40 mg capsule 2022 023 [facility], [address] [place] [address], [address], 3 11:40:51 Vyvanse 40 mg capsule 2022 023 [facility], [address] [place], [address], 3 15:32:19 Patient TargetsNo targets recorded. Patient InstructionsNo instructions recorded. Reason for Referral None Reported. Results Created Date Observation Date Name Description Value Unit Range Abnormal Flag Note LastModifiedBy Organization Detail LastModifiedTime 08/05/20 21 08/05/2021 pregn boby test, urine HCG negati ve Not Available [facility] [place] [address], [address], [place], [address], 08/05/2021 14:56:37 02/25/20 22 02/24/2022 imagi ng/di agnos tic resul t No observ ation record ed. [id number], [place], [address], 11/02/2022 05:06:44 04/28/20 22 02/24/2022 imagi ng/di agnos tic resul t No observ ation record ed. [id number], [place], [address], 11/02/2022 05:06:44 06/12/20 23 06/12/2023 CT, cervi pardeep spine , w/o contr ast No observ ation record ed. [email or web address] [address] [facility], [place], [address], 06/21/2023 12:12:35 Result Notes None recorded. Problems Name Problem SNOMED Code Status Onset Date Resolution Date Notes Provider Name and Address Organization Details Recorded Time Morbid obesity 796438474 Active 2022 Loree Judd MD [address], [place], [address] , [employer] [facility] [employer] 3 15:26:14 Binge eating disorder 063835933 Active 2022 Loree Judd MD [address], [place], [address] , [employer] [facility] [employer] 3 15:29:08 Attention deficit hyperactivity disorder 312434234 Active 2022 Loree Judd MD [address], [place], [address] , [employer] [facility] 3 15:30:27 Attention deficit hyperactivity disorder, predominantly inattentive type 14039383 Active 2022 Loree Judd MD [address], [place], [address] , [place] [facility] [employer] [facility] 3 11:37:46 Vitamin D below reference range 619674380 Active 2022 Loree Judd MD [address], [place], [address] , [employer] [facility] [employer] 3 11:38:16 Vitamin D deficiency 31763675 Active 2022 Loree Judd MD [address], [place], [address] , [employer] [facility] [employer] 3 11:38:32 Neck pain 34989271 Active 2022 Loree Judd MD [address], [place], [address] , [employer] [facility] [employer] [employer] 3 14:46:18 Allergic rhinitis 94213319 Active 2023 HANK Bledsoe [address], [place], [address] , [employer] [facility] [employer] 4 12:21:10 Thyroid disorder screening Active 2023 HANK Bledsoe [address], [place], [address] , [employer] [facility] [employer] [employer] 4 12:26:24 At increased risk of nutritional deficit 434210757 Active 2023 HANK Bledsoe [address], [place], [address] , [employer] [facility] [employer] 4 12:27:56 Hyperlipidemi a screening Active 2023 HANK Bledsoe [address], [place], [address] , [facility] 4 12:28:33 Abdominal pain 40572369 Active Not Available [facility] 3 04:50:37 Mucus in stool 944511107 Active Not Available [facility] 3 04:50:37 Proctitis 3525630 Active 2019 Not Available [facility] 3 04:50:37 Diarrhea 76404623 Active Not Available [facility] 3 04:50:37 Colitis 61953306 Active 2019 Not Available [facility] 3 04:50:37 Notes:had suicidal thoughts on antidepressants years ago . Problem Notes None recorded. Procedures Surgical History Date Name Laterality Status Provider Name and Address Organization Details Recorded Time 10/29/19 21 MANAGEMENT SUPERVISOR Procedure completed Not Available [facility] 2022 04:41:40 05/06/20 19 MANAGEMENT SUPERVISOR Procedure completed Not Available [facility] 2022 04:41:40 hysteroscopy completed [facility]2022 04:41:40 [facility] completed [facility] 11/02/2022 04:41:40 MANAGEMENT SUPERVISOR Surgery completed Not Available [facility] 11/02/2022 04:41:40 [place] Te[place] completed Not Available [facility] 11/02/2022 04:41:40 Cholecystectomy completed Not Available [facility] 11/02/2022 04:41:40 Colonoscopy completed Not Available [facility] 11/02/2022 04:41:40 Imaging Results Imaging Date Name Status LastModified by Organiz ation Details LastModified Time 02/24/2022 imaging/diagn ostic result completed [id number] [address], [address], 11/02/2022 05:06:44 02/24/2022 imaging/diagn ostic result completed [id number] [address], [address], 11/02/2022 05:06:44 06/12/2023 CT, cervical spine, w/o contrast completed [email or web address] [address], [address], 06/21/2023 12:12:35 Procedure Notes None recorded. Medical Equipment None Reported. Allergies Allergen ID Allergen Name Allergen Category Reaction Reaction Severity Criticality Documentation Date Start Date Code Code System Note Provider Name and Address Organization Details Recorded Time 8703 ibuprofen medicatio n other mild Not available 11/02/2022 5640 RxNorm pt had gastr o surge ry Not Available [facility] 3 05:06:08 8704 amoxicill in medicatio n Not available Not available Not available 11/02/2022 723 RxNorm Not Available [facility] 3 05:06:08 Medications Name Sig Start Date [...] % 99 % 106 /min 97.6 [degF] 936774. 83 g 150 mm[Hg] 90 mm[Hg] Not Available [facility] 3 04:46:03 Date Recorded Body mass index (BMI) Body height Oxygen saturation Oxygen saturation in Arterial blood by Pulse oximetry Heart rate Body temperature Body weight Systolic blood pressure Diastolic blood pressure Provider Name and Address Organization Details Last Updated DateTime 2 51.4 kg/m2 160.02 cm 97 % 97 % 110 /min 97.4 [degF] 161206. 79 g 160 mm[Hg] 100 mm[Hg] Not Available [facility] 3 04:46:04 Date Recorded Body height Body mass index (BMI) Body weight Body temperature Heart rate Oxygen saturation Oxygen saturation in Arterial blood by Pulse oximetry Systolic blood pressure Diastolic blood pressure Provider Name and Address Organization Details Last Updated DateTime 3 160.02 cm 51.2 kg/m2 798144. 19 g 98.4 [degF] 104 /min 98 % 98 % 134 mm[Hg] 80 mm[Hg] ZUHAIR Majano [employer] 3 15:15:15 Date Recorded Body height Body mass index (BMI) Body weight Body temperature Heart rate Oxygen saturation Oxygen saturation in Arterial blood by Pulse oximetry Systolic blood pressure Diastolic blood pressure Provider Name and Address Organization Details Last Updated DateTime 3 160.02 cm 50.8 kg/m2 510386. 01 g 97.2 [degF] 88 /min 98 % 98 % 128 mm[Hg] 82 mm[Hg] Padma cho CMA [employer] 3 11:29:55 Date Recorded Body height Body mass index (BMI) Body weight Body temperature Heart rate Respiratory rate Oxygen saturation Oxygen saturation in Arterial blood by Pulse oximetry Systolic blood pressure Diastolic blood pressure Provider Name and Address Organization Details Last Updated DateTime 4 160.02 cm 53.3 kg/m2 666007. 65 g 97.9 [degF] 88 /min 24 /min 98 % 98 % 132 mm[Hg] 78 mm[Hg] Saroj Ramesh Tablo [employer] 4 12:07:41 Social History Question Answer Notes LastModified by Organizat ion Details LastModified Time Tobacco Smoking Status Never Smoker Not Available [facility] 11/02/2022 04:24:29 Do You Have An Advance Directive? No [id number] Information not available 11/02/2022 What Is Your Level Of Caffeine Consumption? None [id number].[id number] 9322 Information not available 11/02/2022 In The 14 Days Before Symptom Onset, Have You Had Close Contact With A Laboratory-confir med COVID-19 While That Case Was Ill? No [id number].[id number] 9158 Information not available 11/02/2022 In The 14 Days Before Symptom Onset, Have You Had Close Contact With A Person Who Is Under Investigation For COVID-19 While That Person Was Ill? No MIGRATION.914232 8681 Information not available 11/02/2022 What Type Of Diet Are You Following? REGULAR Tries To Do Gluten Free MIGRATION.276119 1394 Information not available 11/02/2022 What Is Your Relationship Status? MIGRATION.785509 4178 Information not available 11/02/2022 Do You Use Your Seat Belt Or Car Seat Routinely? Yes [id number].329510 3331 Information not available 11/02/2022 Do You Have Smoke And Carbon Monoxide Detectors In Your Home? Yes MIGRATION.272795 6138 Information not available 11/02/2022 Do You Use Sunscreen Routinely? No MIGRATION.017636 8530 Information not available 11/02/2022 Have You Recently Traveled Abroad? No MIGRATION.314552 6298 Information not available 11/02/2022 Sex: Unknown Functional Status Question Answer Note LastModified by [employer] Details LastModified Time Do you use any illicit or recreational drugs? No [id number].685898 6241 Information not available 11/02/2022 What is your level of alcohol consumption? None MIGRATION.363578 9651 Information not available 11/02/2022 Do you or have you ever used e-cigarettes or vape? Never used electronic cigarettes MIGRATION.006730 5014 Information not available 11/02/2022 What is your exercise level? Occasional MIGRATION.322649 2930 Information not available 11/02/2022 Mental Status Question Answer Note LastModified by [employer] Details LastModified Time Do you feel stressed (tense, restless, nervous, or anxious, or unable to sleep at night)? [id number] [id number] 6 Information not available 11/02/2022 Family History Relationship Description Onset Age of this Age Resolved Age Notes LastModified by Organization Details LastModified Time Maternal Aunt Family history of malignant neoplasm [id number].969 [id number] Not available 11/02/2022 04:41:46 Paternal Grandfather Family history of malignant neoplasm [id number].346 [id number] Not available 11/02/2022 04:41:47 Father Hypertensive disorder [id number].165 [id number] Not available 11/02/2022 04:41:47 Mother Hypertensive disorder MIGRATION.848 [id number] Not available 11/02/2022 04:41:47 Medical History Condition [...] SNOMED-CT Code Diagnosis ICD10 Code Diagnosis Note [id number] Loree Judd MD [facility] , [place] [address] 12/28/2020 00:00:00 12/28/2020 21:55:19 [id number] S_Histor ic_Gateway _ATHENA_M IGRATION_ DEFAULT_1 _1 , 01/21/2021 00:00:00 01/21/2021 15:24:20 [id number] Loree Judd MD [facility] [place] [facility] , [place] [address] 03/03/2021 00:00:00 03/04/2021 06:04:31 [id number] Loree Judd MD [facility] [place] [facility] , [place] [address] 03/30/2021 00:00:00 03/30/2021 20:12:40 [id number] _ATHN_MIGR ATION_1 _ATHENA_M IGRATION_ DEFAULT_1 _1 , 04/14/2021 00:00:00 04/14/2021 11:17:03 [id number] S_Histor ic_Gateway _ATHENA_M IGRATION_ DEFAULT_1 _1 , 04/21/2021 00:00:00 04/21/2021 15:49:54 [id number] Loree Judd MD [facility] [employer]an [employer] [facility] , [place] [address] 04/28/2021 00:00:00 04/28/2021 21:14:27 [id number] [facility] ic_Gateway _ATHENA_M IGRATION_ DEFAULT_1 _1 , 08/05/2021 00:00:00 08/05/2021 17:44:38 [id number] Loree Judd MD [facility] [place] [facility] , [place] [address] 08/19/2021 00:00:00 08/19/2021 20:57:20 [id number] Loree Judd MD [facility] [place] [facility] [place] [address] 01/26/2022 00:00:00 01/26/2022 22:03:27 [id number] Loree Judd MD [facility] [place] [facility] , [place] [address] 03/21/2023 14:32:27 03/21/2023 15:47:06 Adult health examination 097581795 Z00.00 Morbid obesity 920693506 E66.01 Binge eating disorder 43 5266606 F50.81 F/u in 1 month Attention deficit hyperactivity disorder 205522106 F90.9 [id number] Loree Judd MD [facility] [place] [facility] [place] [address] [address] 06/16/2023 11:15:32 06/16/2023 11:40:39 Attention deficit hyperactivity disorder, predominantly inattentive type 00258172 F90.0 Vitamin D deficiency 347 [address] E55.9 Neck pain 30051093 M54.2 Continue diazepam and use ice/heat and analgesic rub. If no better may RTC for trigger point injections . [id number] Loree Judd MD [facility] [place] [facility] [place] [address] [address] 12/06/2023 11:59:38 12/06/2023 12:53:00 Attention deficit hyperactivity disorder, predominantly inattentive type 25575002 F90.0 Allergic rhinitis 805855 04 J30.9 Vitamin D deficiency 347 94456 E55.9 Thyroid di sorder screening 746224410 Z13.29 At [facility] ed risk of nutritional deficit 105960724 Z91.89 Hyperlipid emia screening 785784072 Z13.220 Morbid obesity 570293572 E66.01 Health Concerns Section Related Observation LastModified by Organization Detai ls LastModified Time None Recorded Concern Status LastModified by Organization Details LastModified Time None Recorded Advance Directives Directive N: Payers Encounter Date Sequence Insurance Name Policy Number Policy Garcia Covered Member ID Garcia Member ID Guarantor Name 03/21/[address] [facility] ON OR AFTER 03/04/21 (MEDICAID REPLACEMENT - HMO) [employer] [id number] [employer] 06/16/2023 1 [facility] ON OR AFTER 03/04/21 (MEDICAID REPLACEMENT - HMO) [employer] [id number] [employer] 12/06/2023 1 [facility] ON OR AFTER 03/04/21 (MEDICAID REPLACEMENT - HMO) [employer] [id number] [employer] Notes Date Note Type Note [...] for this and ADD Loree Judd MD [address], [place], [address], [place] [facility] [employer] 03/21/2023 19:04:32 06/16/2023 text/html Here today for m ed check. Had to go to ER last week and went to ER Had a pulled muscle in neck. Given diazepam and taking it daily as needed. Using ice. Had a CT Scan of neck. It was causing headaches on left neck and to head. Loree Judd MD [address], [place], [address], [facility] [employer] [facility] 06/17/2023 14:47:47 12/06/2023 text/html needs refills HAKN Bledsoe [address] [address], [place], [address], [facility] [employer] [facility] 12/18/2023 20:32:51 OBGyn Episode No OBEpisode recorded.
--- OUTSIDE RECORDS SUMMARY | 2025-01-14 01:18 | XMS_ITS | Clinical Summary ---
Author Organization [facility] [employer] Address [address] [facility] [place] [address] Care Team Providers Care Booking Agent Name Role Phone Loree Judd MD Primary Care Provider [phone] Source Comments [facility],non-owned Affiliates and Associated Physician Practices is amultiple site organization consisting of ambulatory clinics and hospital sitesin [place], [place], [place] and [place]. This disclosure is being madepursuant to the Care Everywhere program and may not contain all information available regarding this patient. Last updated 18.[facility] [employer] Allergies Active Allergy Reactions Criticality Noted Date Comments Amoxicillin Other 02/27/2017 ineffective Doesn't work Medications * Be aware that medications may not be up to date on this document. Alwaysverify current medications with the patient. [employer]-Avu-Gl -FA ( VITAMIN WITH IRON) tablet Take [...] on 07/14/2022 Insulin Pen Needle (TRUEplus Pen [place]) 32G X 4 MM MISC Use 1 [...] migh t be different from the original. [employer] form completed. Diapers given. 07/07/2022, [...] place to sleep or slept in a retirement (including now)? No 07/14/2022 [place] Depression Scale Answer Date Recorded RETIRED: Total [...] Comments Blood Pressure 138/85 08/11/2022 11:10 AM DEFENCE INTELLIGENCE ANALYST Pulse 69 08/11/2022 11:10 AM DEFENCE INTELLIGENCE ANALYST Temperature 36.8 C (98.2 F) 07/02/2022 3:15 PM CDT Respiratory Rate 20 08/11/2022 11:10 AM DEFENCE INTELLIGENCE ANALYST Oxygen Saturation 99% 07/02/2022 3:15 PM CDT Inhaled Oxygen Concentration - - Weight 122.9 kg (271 lb) 08/11/2022 11:10 AM DEFENCE INTELLIGENCE ANALYST Height 160 cm (5' 3 ) 06/25/2022 [...] patient's age to complete this topic Insurance [facility] Advance Directives * Full Code (Latest [...] 7:54 AM 03/03/2017 9:17 AM Care Teams Booking Agent Relationship Specialty Start Date End Date Loree Judd MD [address] [address] [address] [place] [address] PCP - General Family Medicine 05/17/22
--- OUTSIDE RECORDS SUMMARY | 2025-01-14 01:18 | XMS_ITS | Clinical Summary ---
Author Organization [facility] Address [address] [place] [address] Phone Care Team Providers Care Healthcare Consulting Manager Name Role Phone Rahel Trevizo APRN Primary [...] measures to stabilize the patient. Care Teams Healthcare Consulting Manager Relationship Specialty Start Date End Date Rahel Trevizo, KAYLIN [address] [facility] [address] [place] [address] PCP - General Family Medicine 01/11/19
[2025-01-14] MEDS: LACTATED RINGERS 1,000 ML 30 ML IV CONT ×2 (11:30→14:20)
[2025-01-14] MEDS: KETOROLAC 15 MG/ML VIAL (*BKC) IV PUSH (11:38)
[2025-01-14] MEDS: ACETAMINOPHEN 500 MG TABLET 1000 MG PO (11:38)
--- NOTE | 2025-01-14 12:33 | WPDHPUPDATE1 ---
History and Physical Update Update Date/Time: 01/14/25 12:33 History and Physical has been reviewed, including an updated exam of the patient. There are NO changes in the patient's condition. Risks, benefits, and alternatives have been discussed and questions answered. Patient agrees to proceed with procedure.
--- NOTE | 2025-01-14 12:58 | P.PNAN_ITS ---
Anes - Eval Pre Procedure Procedure: Operation Date: 01/14/25 12:30 Proposed Procedures p Bilateral Laparoscopic Salpingectomy - Amilcar Nick MD Date/Time: 01/14/25 12:58 Pre Op Diagnosis: Desire Sterilization Patient Data Age: 29 Gender: F Height: 1.6 m Weight: 136.4 kg Allergies Allergy/AdvReac Type Severity Reaction Status Date / Time amoxicillin Allergy Other Verified 01/14/25 12:54 NSAIDS (Non-Steroidal AdvReac Intermediate Gastrointestinal Verified 01/14/25 12:56 Anti-Inflamma Upset Home Medications ?Medication ?Instructions ?Recorded ?Confirmed ?Type loratadine 10 mg capsule (Allergy 10 mg PO DAILY 12/05/24 12/31/24 History Relief (loratadine)) norethindrone (contraceptive) 0.35 0.35 mg PO DAILY #84 tabs 12/05/24 12/31/24 Rx mg tablet albuterol 90 mcg/actuation aerosol 90 mcg inhalation QID PRN dyspnea 12/31/24 12/31/24 History inhaler famotidine 20 mg tablet (Acid 20 mg PO DAILY 12/31/24 12/31/24 History Controller) Patient hx anesthesia problems: none Family hx anesthesia problems: none Results Review: All pre-operative results and documents have been reviewed as part of the pre- operative evaluation. [facility] Surgical History Surgical History Hx of colonoscopy Hx of tonsillectomy Hx of cholecystectomy Family History Family History Mother Hypertension Father Hypertension Grandparent Hypertension Social History Social History Smoking status: Never smoker Second hand tobacco smoke exposure: No Alcohol intake: never Substance use: never Lack of Transportation: No Lack of Food: Never True Current Housing: I Have Housing Concerned About Future Housing: Decline to Answer Difficulty Paying Gas/Electric Bills: YES Difficulty Paying for Meds: No Currently Unemployed: No Education: Bachelor's Degree Difficulty w/ Childcare or Family Care: No Living arrangements: with family Gender identity (if verbalized by the patient): Female Spiritual care concerns: No Agree to blood products: Yes Exam Day of Procedure 01/14/25 12:58 Patient weight: morbidly obese Heart: regular rate and rhythm Lungs: clear to auscultation Airway: Mallampati scale class II Neurological: alert and oriented
--- NOTE | 2025-01-14 13:00 | P.PNAN_ITS ---
Anes - Initial Pre Proc Eval Procedure: Operation Date: 01/14/25 12:30 Proposed Procedures p Bilateral Laparoscopic Salpingectomy - Amilcar Nick MD Date/Time: 01/14/25 13:00 Surgeon: Amilcar Nick MD Pre Op Diagnosis: Desire Sterilization Patient Data Age: 29 Gender: F Height: 1.6 m Weight: 136.4 kg Allergies Allergy/AdvReac Type Severity Reaction Status Date / Time amoxicillin Allergy Other Verified 01/14/25 12:54 NSAIDS (Non-Steroidal AdvReac Intermediate Gastrointestinal Verified 01/14/25 12:56 Anti-Inflamma Upset Home Medications ?Medication ?Instructions ?Recorded ?Confirmed ?Type loratadine 10 mg capsule (Allergy 10 mg PO DAILY 12/05/24 12/31/24 History Relief (loratadine)) norethindrone (contraceptive) 0.35 0.35 mg PO DAILY #84 tabs 12/05/24 12/31/24 Rx mg tablet albuterol 90 mcg/actuation aerosol 90 mcg inhalation QID PRN dyspnea 12/31/24 12/31/24 History inhaler famotidine 20 mg tablet (Acid 20 mg PO DAILY 12/31/24 12/31/24 History Controller) Patient hx anesthesia problems: none Family hx anesthesia problems: none Results Review: All pre-operative results and documents have been reviewed as part of the pre-operative evaluation. [facility] Surgical History Surgical History Hx of colonoscopy Hx of tonsillectomy Hx of cholecystectomy Family History Family History Mother Hypertension Father Hypertension Grandparent Hypertension Social History Social History Smoking status: Never smoker Second hand tobacco smoke exposure: No Alcohol intake: never Substance use: never Lack of Transportation: No Lack of Food: Never True Current Housing: I Have Housing Concerned About Future Housing: Decline to Answer Difficulty Paying Gas/Electric Bills: YES Difficulty Paying for Meds: No Currently Unemployed: No Education: Bachelor's Degree Difficulty w/ Childcare or Family Care: No Living arrangements: with family Gender identity (if verbalized by the patient): Female Spiritual care concerns: No Agree to blood products: Yes Salazar Pedroza Final PreProcedure Day of Procedure 01/14/25 13:00 Patient weight: super morbidly obese Heart: regular rate and rhythm Lungs: clear to auscultation Airway: Mallampati scale class II Neurological: alert and oriented Last oral intake: >/= 8 hours ASA classification: III Emergent: no Anesthetic plan: proceed Anesthesia type and monitoring: general ETT and standard monitoring Results Review: All pre-operative results and documents have been reviewed as part of the pre- operative evaluation. Informed Consent: The patient's anesthetic plan and its attendant risks and benefits were discussed with the patient/family/POA. Questions were solicited and answers provided to the satisfaction of the patient/family/POA.
[2025-01-14] MEDS: LIDO 1%/EPINEPHRINE 1:100,000 20 ML VIAL 19 ML INFILTRATE (13:51)
--- NOTE | 2025-01-14 14:01 | P.OP_ITS ---
Procedure Note - Detailed Date of Procedure 01/14/25 Pre-op Diagnosis Desire Sterilization Post-op Diagnosis Same Procedure Performed laparoscopic bilateral salpingectomy Surgeon Amilcar Nick MD Anesthesia General Indications desires permanent sterilization Findings normal appearing uterus, bilateral fallopian tubes and ovaries Description of Procedure the patient was taken to the operating room where general endotracheal anesthesia was undertaken and found to be adequate. She was then prepped and draped in the dorsal lithotomy position. A pre-operative team brief and time- out were completed. A catheter was placed to drain the bladder. Speculum was placed in the vagina and the cervix was identified. An acorn uterine manipulator was placed as well as single-tooth tenaculum on the anterior lip of the cervix. Attention was then turned to the abdomen which was anesthetized umbilical he with injected anesthetic. A 5 mm skin incision was made in the umbilicus. A 5 mm optical trocar was then placed with direct visualization of the abdominal layers during placement. The trocar stylette was removed and the camera was used to verify intra-abdominal placement.pedro was used to verify intra-abdominal placement. CO2 insufflation was then connected and The abdominal cavity was insufflated. General abdominal and pelvic survey was performed. Two other laparoscopic port site incisions were made approximately 2 cm superior and medial of the ASIS bilaterally. Both fallopian tubes were inspected and identified out to the level of the fimbriae. The Fimbriated end of the left fallopian tube was then grasped with a blunt grasper. the fallopian tube was then transected along its inferior aspect along the mesosalpinx with the LigaSure device. Transection was carried out to the fallopian tubes insertion into the uterine fundus. The fallopian tube was then completely transected from the uterus using the LigaSure device. This procedure was repeated for the right fallopian tube. Good hemostasis was maintained throughout. The transected fgh the 5 mm laparoscopic portrom the abdomen through the 5 mm laparoscopic port. The surgical field was inspected and again could hemostasis was noted. At this point the procedure was ended. The abdomen was desufflated. All laparoscopic ports were removed from the abdomen. Abdominal incisions were closed with 4-0 Vicryl in a subcuticular fashion.. The acorn manipulator and tenaculum weere removed from the vagina. The cervix was inspected and good hemostasis was obtained. Sponge, lap and needle counts were correct. The patient tolerated the procedure well. The patient was taken out of dorsal lithotomy. anesthesia was reversed. The patient was taken to PACU in stable condition. Estimated Blood Loss 10 Urine Output 25 Drains No Packing No Pathology Yes ( Bilateral fallopian tubes) Complications No immediate complications Condition Stable Disposition PACU [facility] Billing Surgery - Charge Forward: Surgery Billing
[2025-01-14] MEDS: ONDANSETRON INJ 4 MG/2 ML VIAL IV PUSH (15:48)
== END 2025-01-14 16:24 | disposition home or self-care (01) ==
PROVIDERS: Visit Provider Student in an Organized Health Care Education/Training Program
PROC: (CPT 49320; principal; 2025-01-14 12:30)
DX: Z30.2 Encounter for sterilization (principal); E66.01 Morbid (severe) obesity due to excess calories; Z68.43 Body mass index [BMI] 50.0-59.9, adult
CPT/HCPCS: 58661; 88302; A9270; J1100; J1885; J2003; J2004; J2250; J2405; J2704; J3010; J7030; J7120